=== PATIENT | female | born 1945 | race Caucasian/White ===

== ENCOUNTER 2017-04-25 19:27 | Inpatient (IN) | payer MEDICARE ==
[~2017-04-25] VITALS: Ht 167.6 cm; Wt 68.2 kg
[2017-04-25 19:27] VITALS: BP 170/62
[~2017-04-25 19:27] MED LIST: ACCUNEB SO1.25 MG/1 INH; ASPIR 8181 MG PO; ATORVASTATIN CA40 MG PO; BIOTIN2500 MCG PO; HYDROCHLOROTHIA25 M2 PO; LEVALBUTER1.25 MG/0. INH; LEVAQUIN 500 M500 M2 PO; LEVOXYL75 MCG PO; LISINOPRIL5 MG PO; PREDNISONE 10 M10 M1 PO; SINGULAIR 10 MG10 M1 PO; SYMBICORT160 MCG/4. INH; VITAMIN D3400 UNIT PO
[2017-04-25 19:45] LABS: ABSOLUTE LYMPHOCYTES 2.2 thou/uL (0.8-5.3); ABSOLUTE MONOCYTES 1.1 thou/uL (0.0-1.2); ABSOLUTE NEUTROPHILS 10.8 thou/uL (1.6-8.1); BASOPHILS 0.2 %; EOSINOPHILS 0.1 %; HEMATOCRIT 41.4 % (37.0-47.0); HEMOGLOBIN 13.8 gm/dL (12.0-15.0); LYMPHOCYTES 15.7 %; MCH 31.4 pg (26.0-34.0); MCHC 33.4 g/dL (28.0-37.0); MCV 93.9 fL (80.0-100.0); MONOCYTES 7.6 %; MPV 8.8 fl. (7.2-11.1); NUCLEATED RBCS 0 /100WBC; PLATELET COUNT* 267 thou/uL (150-400); POLYS 76.4 %; RBC 4.41 mil/uL (4.20-5.00); RDW-CV 14.5 % (10.5-14.5); WBC 14.1 thou/uL (4.0-11.0)
[2017-04-25 19:55] LABS: ANION GAP 11 mmol/L (7-16); BUN 22 mg/dL (7-18); CALCIUM 9.4 mg/dL (8.5-10.1); CHLORIDE 89 mmol/L (98-107); CO2 25 mmol/L (21-32); CREATININE 1.1 mg/dL (0.6-1.3); GLUCOSE 160 mg/dL (70-99); POTASSIUM 4.1 mmol/L (3.5-5.1); SODIUM 125 mmol/L (136-145)
[2017-04-25 19:56] LABS: APTT 24.8 Seconds (25.0-31.3); INR 1.1; PROTIME 10.7 Seconds (9.20-11.50)
[2017-04-25 20:05] LABS: ALKALINE PHOSPHATASE 127 U/L (46-116); LIPASE 177 U/L (73-393); MAGNESIUM 1.7 mg/dL (1.8-2.4); NT-PRO BRAIN NAT PEPTIDE 182 pg/mL (<300); SGOT 261 U/L (15-37); SGPT 500 U/L (30-65); TOTAL BILIRUBIN 0.6 mg/dL (<0.1-1.0); TROPONIN-I LEVEL <0.06 ng/mL (<0.06)
[2017-04-25] MEDS ORDERED: PREDNISONE 10 M10 MG PO (20:06)
[2017-04-25 20:31] LABS: BE -1.7 mmol/L (-2 to +3); HCO3 21.8 mmol/L (22.0-26.0); PCO2 33.3 mmHg (35.0-45.0); pH 7.433 (7.340-7.450)
[2017-04-25 20:32] LABS: PO2 249.9 mmHg (75.0-100.0)
[2017-04-25 21:40] VITALS: BP 142/53
[2017-04-25 22:03] VITALS: BP 130/59
[2017-04-26] VITALS (8 sets, daily range): BP systolic 94–136; BP diastolic 27–60
--- NOTE | 2017-04-26 04:42 | NUR ---
END SHIFT: PT RESTED WELL IN UPRIGHT POSITION. REMAINS VERY SOA, TACHYPNEC BREATHS, ON 4L NC. IVF INFUSING WITHOUT DIFFICULTY. ST ON MONITOR. PRESSURES HAVE BEEN SLIGHTLY HYPOTENSIVE. NO PAIN. NO OTHER COMPLAINTS. HARSH NON PRODUCTIVE COUGH NOTED WITH WHEEZING. SCREENED POSITIVE FOR SEPSIS ON ARRIVAL TO FLOOR. ORDERED RECIEVED BY MONYT. SAFETY PRECAUTIONS IN PLACE. CALL LIGHT IN REACH. PERFORMED HOURLY ROUNDING. WILL CONT TO MONITOR.
--- NOTE | 2017-04-26 12:02 | NUR ---
MET WITH PT TO DISCUSS HOME SITUATION/DC PLANNING. PT LIVES WITH SPOUSE. SHE USES NEBULIZER AT HOME. PT IS INDEPENDENT AND ACTIVE. SHE HASN'T HAD HH OR BEEN TO SNF. PLANS TO RETURN HOME AT [place]. SON/ROXANN IS HER DPOA. DENIES NEEDS. WILL FOLLOW
--- NOTE | 2017-04-26 15:38 | EKG ---
[place] [address] ELECTROCARDIOGRAM REPORT Name: DIANA VILLASEÑOR Amisha Room: [address] ADM IN .R.#: [id number] Admission: 04/25/17 Attend Phys: Darryl Olson Discharge: Date of : 43 Report #: [id number] THIS REPORT FOR: //name// [facility] ED Test Date: 2017-04-25 Test Time: 20:11:29 Pat Name: CHERRY VILLASEÑOR Department: Room: [facility] Gender: F Processing Tech: CYNDIE Montenegro : 1945 Requested By: Oscar Lala Order Number: [id number] MD: Wale Mart Measurements Intervals [place] Rate: 128 P: 95 OH: 147 QRS: 55 QRSD: 91 T: 39 QT: 302 QTc: 441 Interpretive Statements Sinus tachycardia Compared to ECG 02/06/2017 22:25:47 Myocardial infarct finding no longer present Electronically Signed On 04-26-2017 15:37:55 SUPERVISOR EXTRUDING DEPARTMENT by Wale Mart [email or web address] <ELECTRONICALLY SIGNED> By: Wale Mart MD, [facility] 04/26/17 1537 10 10 Wale Mart MD, FAC /EPI
--- NOTE | 2017-04-26 20:07 | NUR ---
ASSUMED PT CARE AT 0730, FULL ASSESMENT DONE CHARTED. PT A/O X4, C/O COUGH AND SOA. PT ON 4L O2 NC. SAT IN THE UPPER 90'S. ALL OTHER VSS, ST ON THE MONITOR. PT UP AD YOANA IN ROOM. USES CALL LIGHT APPROPRIALTY. PTS IV INFILTRATED THIS EVENING. ATTEMPTED TO START NEW IV, PT STARTING BREATHING HARD, XANEX GIVEN, PT RELAXED, NIGHT RN PLACED NEW IV AND REPORT LUIS E.
--- NOTE | 2017-04-27 01:56 | NUR ---
RECEIVED REPORT FROM CORTEZ MANLEY, AND ASSUMED CARE OF PATIENT AT THIS TIME. REVIEWED ASSESSMENT AND AGREE WITH CHARTING. PATIENT RESTING COMFORTABLY AT THIS TIME. IVF INFUSING PER ORDERS. CALL LIGHT WITHIN REACH
[2017-04-27 04:02] VITALS: BP 116/41
[2017-04-27 05:05] LABS: ABSOLUTE LYMPHOCYTES 1.1 thou/uL (0.8-5.3); ABSOLUTE MONOCYTES 0.5 thou/uL (0.0-1.2); ABSOLUTE NEUTROPHILS 7.9 thou/uL (1.6-8.1); BASOPHILS 0.1 %; HEMATOCRIT 35.4 % (37.0-47.0); LYMPHOCYTES 11.6 %; MCH 31.5 pg (26.0-34.0); MCHC 33.1 g/dL (28.0-37.0); MCV 95.3 fL (80.0-100.0); MONOCYTES 5.4 %; MPV 8.9 fl. (7.2-11.1); NUCLEATED RBCS 0 /100WBC; POLYS 82.9 %; RBC 3.72 mil/uL (4.20-5.00); RDW-CV 14.7 % (10.5-14.5); WBC 9.5 thou/uL (4.0-11.0)
[2017-04-27 05:17] LABS: HEMOGLOBIN 11.7 gm/dL (12.0-15.0); PLATELET COUNT* 145 thou/uL (150-400)
[2017-04-27 05:40] LABS: CALCIUM 8.3 mg/dL (8.5-10.1); CREATININE 0.8 mg/dL (0.6-1.3); POTASSIUM 3.5 mmol/L (3.5-5.1); TOTAL BILIRUBIN 0.2 mg/dL (<0.1-1.0); TOTAL PROTEIN 6.4 g/dL (6.4-8.2)
--- NOTE | 2017-04-27 06:44 | NUR ---
PATIENT PARTIALLY PROGRESSING TOWARDS GOALS: PATIENT'S O2 INCREASED TO 4L NC DUE TO INCREASE AND ANXIETY AND SHORTNESS OF AIR. O2 SATS MAINTAINED >90%. ANXIETY WAS RELIEVED BY THERAPEUTIC COMMUNICATION AND RELAXATION TECHNIQUES. PATIENT NPO FOR ABDOMINAL US. HOURLY ROUNDING OBSERVED. CALL LIGHT WITHIN REACH
[2017-04-27 07:05] LABS: HEPATITIS B SURFACE AG Negative (Negative)
[2017-04-27 09:00] VITALS: BP 123/50
[2017-04-27 12:00] VITALS: BP 125/58
[2017-04-27 16:00] VITALS: BP 133/47
--- NOTE | 2017-04-27 19:46 | NUR ---
ASSUMED PT CARE AT 0730, FULL ASSESMENT DONE CHARTED. PT A/O X4, DENIES PAIN, GETS SOA WHEN AMBULATING. PT NEEDED NEW IV TODAY FOR CT, SHE BECAME VERY ANXIOUS WHILE NURSE WAS PLACING IT. XANEX GIVEN. RFA IV INFILTRATED IN CT, ANOTHER WAS PLACED IN CT AND ALSO INFILTRATED. PTS LEFT ARM SLIGHTLY SWOLLEN, WRAPED WITH COBAN, THEN ICED THE ARM. PTS VSS, ST ON THE MONITOR. FALL PRECATUIONS IN PLACE. PT USES CALL LIGHT APPROPRIALTY. REPORT GIVEN TO CORTEZ VIRAMONTES
[2017-04-27 20:00] VITALS: BP 120/53
[2017-04-28] VITALS (7 sets, daily range): BP systolic 114–149; BP diastolic 50–65
--- NOTE | 2017-04-28 06:36 | NUR ---
PATIENT PROGRESSING TOWARDS GOALS: PATIENT RECIEVED XANAX X1 FOR ANXIETY WITH RELIEF. PATIENT STATES SHE WANTS TO "TRY TO GO WITHOUT IT." PATIENT REMAINS ON 3L O2 NC WITH SATS >92%. PATIENT WAS TITRATED DOWN FROM 4L AT THE BEGINNING OF THE SHIFT. PATIENT TOLERATING ACTIVITY WELL. PATIENT DENIES PAIN AND DISCOMFORT. HOURLY ROUNDING OBSERVED. CALL LIGHT WITHIN REACH
--- NOTE | 2017-04-28 08:15 | NUR ---
ASSUMED CARE OF PT ASSESSED AND DOCUMENTED. PT ON CARDIAC MONITER TRACING ST 108. VSS WNL. PT IS A&O WITH NO C/O PAIN. PT IS AFEBRILE. PT HAS SWELLING AND REDNESS IN BLUARMS. WM.
--- NOTE | 2017-04-28 17:32 | NUR ---
PT HAS REMAINED ON ROOM AIR. SHE C/O ANXIETY X1 TODAY XANAX 0.5 MG GIVEN AND WAS EFFECTIVE. HOURLY ROUNDING COMPLETE. EDUCATION GIVEN ON DEMAND. PT RESTING IN ROOM WITH AT BEDSIDE.
[2017-04-29 04:00] VITALS: BP 147/64
[2017-04-29 04:45] LABS: HEMATOCRIT 38.7 % (37.0-47.0); HEMOGLOBIN 12.8 gm/dL (12.0-15.0); MCH 31.2 pg (26.0-34.0); MCHC 32.9 g/dL (28.0-37.0); MCV 94.9 fL (80.0-100.0); MPV 9.1 fl. (7.2-11.1); NUCLEATED RBCS 0 /100WBC; PLATELET COUNT* 182 thou/uL (150-400); RBC 4.08 mil/uL (4.20-5.00); RDW-CV 14.6 % (10.5-14.5); WBC 9.6 thou/uL (4.0-11.0)
[2017-04-29 05:09] LABS: ALBUMIN 3.2 g/dL (3.4-5.0); CALCIUM 8.3 mg/dL (8.5-10.1); CREATININE 0.8 mg/dL (0.6-1.3); MAGNESIUM 1.7 mg/dL (1.8-2.4); POTASSIUM 3.2 mmol/L (3.5-5.1); TOTAL BILIRUBIN 0.2 mg/dL (<0.1-1.0); TOTAL PROTEIN 7.1 g/dL (6.4-8.2)
--- NOTE | 2017-04-29 05:36 | NUR ---
PATIENT REPORTS FEELING MORE ANXIOUS THIS SHIFT THAN PREVIOUS SHIFTS. XANAX ADMINISTERED X2 PER EMAR WITH PARTIAL RELIEF. PATIENT SUSPECTS IT IS THE STEROIDS CAUSING HER ANXIETY. REASSURANCE PROVIDED. IVF INFUSING PER ORDERS. PATIENT ON ROOM AIR WITH SATS >90%, WHILE 2L O2 NC ON STANDBY PRN. PATIENT DID HAVE TO USE O2 WHILE AMBULATING TO BATHROOM DUE TO SHORTNESS OF BREATH ON EXERTION. HOURLY ROUNDING OBSERVED. CALL LIGHT WITHIN REACH
[2017-04-29 05:46] LABS: ABSOLUTE LYMPHOCYTES 1.2 thou/uL (0.8-5.3); ABSOLUTE MONOCYTES 0.3 thou/uL (0.0-1.2); ABSOLUTE NEUTROPHILS 8.1 thou/uL (1.6-8.1); PLATELET ESTIMATE ADEQUATE
[2017-04-29 05:48] LABS: ANISOCYTOSIS 1+; POIKILOCYTOSIS 1+
[2017-04-29 08:00] VITALS: BP 134/60
[2017-04-29 11:26] LABS: CALCIUM 8.2 mg/dL (8.5-10.1); CREATININE 0.9 mg/dL (0.6-1.3)
[2017-04-29 11:27] LABS: POTASSIUM 2.9 mmol/L (3.5-5.1)
[2017-04-29 12:05] VITALS: BP 158/54
[2017-04-29 16:04] VITALS: BP 143/49
--- NOTE | 2017-04-29 19:10 | NUR ---
assumed pt care at 0730, full assesment done as charted. pt a/o x4, c/o soa when ambulating but states she feels better. pt hopeful to go home today but wants pt to stay another day. pts vss, sr-st on the monitor. pt up ad efrain in room, fall precatuions in place. call light in reach and used approprialty. will continue to monitor
[2017-04-29 20:00] VITALS: BP 152/60
[2017-04-29 21:03] LABS: MAGNESIUM 1.7 mg/dL (1.8-2.4); POTASSIUM 3.9 mmol/L (3.5-5.1)
[2017-04-29 23:47] VITALS: BP 179/81
[2017-04-30 04:00] VITALS: BP 166/60
[2017-04-30 04:52] LABS: CALCIUM 8.5 mg/dL (8.5-10.1); CREATININE 0.8 mg/dL (0.6-1.3); POTASSIUM 3.6 mmol/L (3.5-5.1)
--- NOTE | 2017-04-30 07:40 | NUR ---
THIS NURSE ASSUMED CARE OF PT 04/29/17 AT 1930, PT ALERT AND ORIENTED X4, PT IN PLEASANT MOOD, VISITS WITH , PT SITS UPRIGHT IN BED THROUGHOUT THE NIGHT, PT HAS 2 EPISODES OF EXTREME ANXIETY AND COMPLAINS THAT SHE CANNOT BREATHE, FAN, COOL CLOTH, AND ANTIANXIETY MEDICATION PROVIDED, PT THEN REPORTS FEELING BETTER, PT UP TO BEDSIDE COMMODE WITH STANDBY ASSIST, DENIES PAIN THROUGHOUT THIS SHIFT, REMAINS ON 2-4L O2 NC AND IV FLUIDS CONTINUE INFUSING, REPORT GIVEN TO LISSETTE TORO
[2017-04-30 09:30] VITALS: BP 166/66
[2017-04-30 11:30] VITALS: BP 192/74
--- NOTE | 2017-04-30 12:30 | NUR ---
CONTINUE TO FOLLOW, MET WITH PT AND DIL. PT ANXIOUS, SITTING UP IN BED WITH O2 ON. ASKING FOR VISTARIL AND CORTEZ DAHL AWARE. PT STILL PLANS TO RETURN HOME AT [place]. WILL FOLLOW
[2017-04-30 16:00] VITALS: BP 130/73
--- NOTE | 2017-04-30 17:30 | NUR ---
ASSUMED PT CARE AT 0700 PT DENIES PAIN OR SOA ON 4L/NC PT IS UP AD YOANA PT IS NOT A FALL RISK PT FAMILY IN ROOM, PT IS ST ON MONITOR PT IS ANXIOUS GAVE VISTRIL INSTEAD OF XANAX PER PY REQUEST DOES NOT WANT TO BECOME ADDICTED IS PT CONCERN. PT HAS IV IN RIGHT HAND, PT IS PLEASANT AND COOPERATIVE WITH ANXIOUS EPISODES, WILL CONTINUE TO MONITOR
[2017-04-30 21:20] VITALS: BP 168/65
[2017-05-01 00:08] VITALS: BP 159/57
[2017-05-01 04:27] VITALS: BP 156/60
[2017-05-01 05:19] LABS: ABSOLUTE LYMPHOCYTES 0.9 thou/uL (0.8-5.3); ABSOLUTE MONOCYTES 0.3 thou/uL (0.0-1.2); ABSOLUTE NEUTROPHILS 8.2 thou/uL (1.6-8.1); BASOPHILS 0.1 %; EOSINOPHILS 0.1 %; HEMATOCRIT 38.9 % (37.0-47.0); HEMOGLOBIN 12.8 gm/dL (12.0-15.0); LYMPHOCYTES 9.2 %; MCH 31.3 pg (26.0-34.0); MCV 94.8 fL (80.0-100.0); MONOCYTES 3.7 %; MPV 9.2 fl. (7.2-11.1); NUCLEATED RBCS 0 /100WBC; PLATELET COUNT* 169 thou/uL (150-400); POLYS 86.9 %; RDW-CV 15.2 % (10.5-14.5); WBC 9.4 thou/uL (4.0-11.0)
[2017-05-01 05:59] LABS: ALBUMIN 3.2 g/dL (3.4-5.0); CALCIUM 8.3 mg/dL (8.5-10.1); CREATININE 0.8 mg/dL (0.6-1.3); MAGNESIUM 1.5 mg/dL (1.8-2.4); TOTAL BILIRUBIN 0.4 mg/dL (<0.1-1.0)
[2017-05-01 06:00] LABS: POTASSIUM 2.9 mmol/L (3.5-5.1)
--- NOTE | 2017-05-01 06:07 | NUR ---
PT SLEPT MOST OF NIGHT. ASSESSMENT DOCUMENTED. MEDS GIVEN PER E-MAR. NO REPORTS OF PAIN OR NAUSEA. PT COUGHING BEGINING OF SHIFT, STATING SHE WAS HAVING A HARD TIME COUGHING STUFF UP. IV PATENT, FLUIDS INFUSING. POTASSIUM AND MAGNESIUM LOW THIS AM, WILL REPLACE PER PROTOCOL. WILL CONTINUE TO MONITOR.
--- NOTE | 2017-05-01 06:27 | CON ---
[facility] [address] [place] [address] CONSULTATION Name: NAYELYWilianCHERRY Room: [address] IN ..#: [id number] Admission: 04/25/17 Attend Phys: Darryl Olson Discharge: Date of : 43 Report #: [id number] THIS REPORT FOR: //name// CC: Ashwini Gaitan DATE OF SERVICE: 04/29/2017 REQUESTING PHYSICIAN: Gagandeep Martinez MD. REASON FOR CONSULTATION: COPD exacerbation. DISCUSSION: The patient is a 71-year-old woman who is well known to me. I followed her in the office. She is a former smoker, quitting greater than 10 years ago. She does have very severe COPD with her last FEV1 of only 31% of predicted. She has not been steroid or O2 dependent. I just saw her in office several weeks ago, at that time was doing fair. She began to have more congestion and she was given prednisone and azithromycin to start if her symptoms worsened. She did start that at home. She notes she has had a lot of upper airway congestion. She presented to the ED here on 04/25/2017. She was having a lot of trouble with her breathing, was unable to get secretions mobilized. She is quite anxious with that as well. She has not had any recent fevers at home. She has been able to get up ____. No chest pain and no hemoptysis. She was admitted and started on IV steroids, bronchodilator therapy, initially was placed on quite a bit of oxygen, was actually weaned to room air yesterday. During the night, felt much more anxious, had some palpitations noted. Did receive some additional Xanax during the night. She was hoping to be discharged today. Dr. Martinez was concerned given her shortness of air, actually was still tight and asked me to see her. She has been followed in our office for quite some time. She has severe COPD as noted. Baseline, she is on nebulizer treatments with the albuterol, which she does roughly 4 times a day, Spiriva daily, Symbicort 60/4.5 two puffs twice a day, more recently had increased the amount of Mucinex that she is on. She has had a flu shot for this season. She quit smoking greater than 10 years ago. She does have a who smokes, so he typically goes outside to smoke. Sometimes he does smoke, however, in the garage. Here in the hospital, she has been on Xopenex 0.63 mg every 6 hours, potassium and magnesium replacement protocols, diltiazem, lorazepam p.r.n., montelukast, Protonix, Lovenox for DVT prophylaxis, methylprednisolone 62.5 mg IV every 8 hours, levofloxacin, lisinopril, vitamin D, MiraLax, docusate, [place] [address] CONSULTATION Name: CHERRY VILLASEÑOR Room: [address] IN [facility]#: [id number] Admission: 04/25/17 Attend Phys: Darryl Olson Discharge: Date of : 43 Report #: [id number] Ramses. PAST MEDICAL HISTORY: Besides the severe COPD, it is also remarkable that she has had some mucous plugging. This was noted on a CT scan done of her chest this fall at an outside institution. She also had a small nodule noted in the right lung field. Given her severe COPD and high risk for any invasive procedures, our plan was to repeat CT imaging studies after the first of the year. Also, has a history of type 2 diabetes mellitus, dyslipidemia, hypothyroidism, ongoing issues with upper airway congestion, sinusitis, TIA. She has had cataract surgery and facelift done in the past. SOCIAL HISTORY: She is . Former smoker as noted. FAMILY HISTORY: Positive for ovarian cancer and heart disease. REVIEW OF SYSTEMS: A 12-point ROS was done. No positives as above. She does become very depressed and anxious when she is on systemic corticosteroids. No recent fevers at home. Secretions have been clear. No difficulty swallowing. No nausea or vomiting. PHYSICAL EXAMINATION: GENERAL APPEARANCE: Pleasant woman who looks stated age. Does look a little anxious. However, she is alert, conversant, and able to speak in full sentences. HEENT: Head is normocephalic. Sclerae are nonicteric. No tenderness with percussion over sinuses. Oral mucosa is moist. No thrush is seen. NECK: Negative for adenopathy. HEART: Regular, though mildly tachycardic. It is in the low 90s. No S3 is heard. Tones are distant. LUNGS: Show breath sounds to be markedly diminished. She has a prolonged expiratory phase. Does have expiratory wheezes heard. Excursion is equal. No subcutaneous emphysema. ABDOMEN: Soft. EXTREMITIES: She has no clubbing. Lower extremities are negative for edema. SKIN: Warm and dry. NEUROLOGIC: She is alert and oriented x3. LABORATORY AND X-RAY FINDINGS: Arterial blood gases done on admission, she had a pH 7.43, pCO2 of 33, pO2 of 250, bicarbonate of 22 with saturation 98%. That was on a nonrebreather mask. On her chemistry this morning, her potassium is 2.9 (now being replaced). Her sodium on admission was 125, up to 137 today. BUN 18, creatinine of 0.9. Glucose has been a little elevated. Transaminases elevated with her ALT of 203, AST of 58. Lipase was normal. Bilirubin was normal. Lactic acid normal. White blood cell count 9600 down from 14,100, hemoglobin 12.8, hematocrit of 38.7, platelets 182,000. Blood cultures sent [place] [address] CONSULTATION Name: CHERRY VILLASEÑOR Room: [address] IN [facility].#: [id number] Admission: 04/25/17 Attend Phys: Darryl Olson Discharge: Date of : 43 Report #: [id number] Imaging studies were reviewed. A CT angiogram done of her chest 2 days ago was negative for pulmonary emboli. She does have some plugging noted in the left lower lobe bronchus. No definite nodules or masses are appreciated. I do not have her prior CT scan available for comparison purposes, though I recall findings on that other scan were much more prominent than what they are seen previously. She does have renal cysts noted including a very large one on the left side. This was confirmed with a CT scan done of her abdomen and pelvis, which was measuring 12.6 x 15.5 x 16.4. IMPRESSION: 1. Chronic obstructive pulmonary disease exacerbation. Remains tight and bronchospastic, though reportedly is improved from admission. Baseline, she does have very severe disease with FEV1 of only 31% of predicted. Remarkably, she has not been steroid or O2 dependent in the past. She has had issues with mucus plugging, however, poor candidate for invasive procedures. 2. Anxiety, this has been an intermittent ongoing issue for her. Can be exacerbated by bronchodilator therapy. Unfortunately, Xopenex is not covered with her insurance, so she has been using albuterol at home. 3. Renal cyst. Should not be contributing to her acute issues. RECOMMENDATIONS: 1. I agree with Dr. Martinez, she is not ready for discharge today. 2. We will add Brovana to her nebulizer treatments to take the place of Symbicort while she is here. 3. Mucinex maximum strength. 4. Also provide a flutter device. 5. Reevaluate tomorrow. Check O2 needs. 6. Hopefully, she can be discharged within the next 1-2 days. She is quite anxious to get home for the holidays. However, I reiterated to her I do want to have her in position that she can be managed at home, and not require prompt readmission. 7. She is concerned about taking anxiolytics. 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 Vistaril may be helpful without the addiction risk. <ELECTRONICALLY SIGNED> By: Lorene Woodard MD 05/01/17 0627 1203 [id number] Woodard MD /nt
[2017-05-01 09:30] VITALS: BP 150/58
[2017-05-01 11:30] VITALS: BP 146/51
[2017-05-01 16:00] VITALS: BP 107/56
[2017-05-01 19:31] LABS: MAGNESIUM 1.8 mg/dL (1.8-2.4); POTASSIUM 3.8 mmol/L (3.5-5.1)
[2017-05-01 20:10] VITALS: BP 171/61
[2017-05-02 00:02] VITALS: BP 170/54
[2017-05-02 04:00] VITALS: BP 118/47
--- NOTE | 2017-05-02 05:07 | NUR ---
ASSUMED CARE AROUND 1930. PT A/OX4 AND VERY PLEASANT, ANXIOUS DURING NIGHT AND AWAKE MOST THIS SHIFT. PT REQUESTED VISTARIL AND XANAX X1 THIS SHIFT FOR ANXIETY/SLEEP. BP ELEVATED PRIOR TO XANAX BUT SINCE HAS COME DOWN. PT DENIES ANY PAIN. TELE MONITOR TRACING SR/1D. ON 3L NC. IVF INFUSING ORDERED. UP AD YOANA TO BSC. DENIES WEAKNESS OR DIZZINESS. SEE CHARTING. CALL LIGHT IN REACH, WILL CONTINUE WITH PLAN OF CARE.
[2017-05-02 09:30] VITALS: BP 174/54
[2017-05-02 12:01] VITALS: BP 163/49
--- NOTE | 2017-05-02 15:29 | NUR ---
ASSUMED PT CARE AT 0700 PT IS ALERT AND ORIENTED X 4 PT DENIES PAIN PT IS NOT A FALL RISK, PT HAVING ANXIETY GAVE XANAX PT STATES XANAX HELPS EASE HER ANXIETY AND BREATHING, PT IS SR ON THE MONITOR, PT IS UP AD YOANA, PT IS PLEASANT AND COOPERATICE PT IS IN THE ROOM, WILL CONTINUE TO MONITOR
[2017-05-02 16:07] VITALS: BP 149/50
[2017-05-02 20:00] VITALS: BP 150/47
--- NOTE | 2017-05-02 20:00 | NUR ---
RECEIVED REPORT AND ASSUMED CARE OF PT, ASSESSMENT COMPLETED. SITTING UP IN CHAIR VISITING WITH . HAS BEEN WALKING AROUND ROOM WITH O2 ON AT 3L/NC. TAKING IT SLOW, SOB WITH ACTIVITY BUT WANTS TO BUILD STRENGTH TO GO HOME TOMORROW. TELEMETRY ON SHOWING SR. WILL CONT TO MONITOR AND ASSIST NEEDED.
[2017-05-03 00:06] VITALS: BP 139/52
[2017-05-03 03:41] VITALS: BP 123/42
--- NOTE | 2017-05-03 06:59 | NUR ---
AWAKE FREQ TONIGHT, XANAX GIVEN AND ABLE TO REST AFTER THIS. ASSESSMENT UNCHANGED. TELEMETRY CONT TO SHOW SR. HOURLY ROUNDING OBSERVED. ADVANCING TOWARDS GOALS.
[2017-05-03 08:00] VITALS: BP 145/53
[2017-05-03 12:20] VITALS: BP 124/46
[2017-05-03 17:40] VITALS: BP 128/53
--- NOTE | 2017-05-03 18:38 | NUR ---
ASSUMED CARE OF PT AT 0715. BEDSIDE REPORT RECIEVED FROM FOOD AND NUTRITION PROFESSOR NURSE. PT CONTINUES TO BE A&O X4, CALM AND COOPERATIVE. PT HAS BEEN TRACING SR ON THE MONIITOR TODAY. PT HAS HAD NO C/O PAIN THAT REQUIRED PHARMACOLOGICAL INTERVENTION. PT HAS HAD FAMILY IN AND OUT OF HER ROOM FOR MOST OF THE DAY. SHE HAS BEEN UP WITH 1 ASSIST TO THE THE BEDSIDE COMMODE TODAY AND HAS HAD ADEQUATE INTAKE AND OUTPUT. RESTING ROOM AIR OXYGEN SATURATIONS COMPLETED BY RESP THERAPY TODAY. PT STATES THAT SHE IS 'FEELING BETTER' TODAY AND HAS A BRIGHT AFFECT. NURSING WILL CONTINUE TO MONITOR.
[2017-05-03 20:00] VITALS: BP 148/56
[2017-05-04] VITALS: BP 153/52
[2017-05-04 04:49] VITALS: BP 125/56
--- NOTE | 2017-05-04 05:33 | NUR ---
ASSUMED CARE AROUND 1930. PT A/OX4 AND CALM, SEEMED TO REST WELL THIS SHIFT. TELE MONITOR TRACING SR/ST WITH HR UP TO 110'S. VSS, AFEBRILE. DENIED PAIN. ON 3L NC, REPORTING FEELING "SOMETHING STUCK IN THE BACK OF HER THROAT" AND COUGHING TO GET IT UP. UP AD YOANA. IVF INFUSING ORDERED. SEE CHARTING. CALL LIGHT IN REACH, WILL CONTINUE WITH PLAN OF CARE.
[2017-05-04 08:23] LABS: HEMATOCRIT 39.6 % (37.0-47.0); HEMOGLOBIN 13.4 gm/dL (12.0-15.0); MCH 31.6 pg (26.0-34.0); MCHC 33.9 g/dL (28.0-37.0); MCV 93.2 fL (80.0-100.0); MPV 8.5 fl. (7.2-11.1); NUCLEATED RBCS 0 /100WBC; PLATELET COUNT* 173 thou/uL (150-400); RBC 4.25 mil/uL (4.20-5.00); RDW-CV 14.6 % (10.5-14.5)
[2017-05-04 08:44] LABS: CREATININE 0.7 mg/dL (0.6-1.3)
[2017-05-04 08:47] LABS: POTASSIUM 2.6 mmol/L (3.5-5.1)
[2017-05-04 09:03] LABS: ABSOLUTE LYMPHOCYTES 1.6 thou/uL (0.8-5.3); ABSOLUTE MONOCYTES 0.6 thou/uL (0.0-1.2); ABSOLUTE NEUTROPHILS 13.8 thou/uL (1.6-8.1); PLATELET ESTIMATE ADEQUATE
[2017-05-04 09:30] VITALS: BP 176/55
--- NOTE | 2017-05-04 10:48 | NUR ---
Nutrition: Pt assessed for LOS. Possible disch home soon. Pt admitted with SOA. Albumin 3.2, K+ 2.6. Wt: 158#. Eating Regular diet. No nutrition concerns at this time.
[2017-05-04 11:30] VITALS: BP 156/58
--- NOTE | 2017-05-04 14:15 | NUR ---
CONTINUE TO FOLLOW, MET WITH PT AND SPOUSE/ROXANN. PT STATES FEELING IMPROVED TODAY, STILL HAVING DIFFICULTY WITH COUGHING UP MUCOUS. PT STATES SHE PLANS TO RETURN HOME AT [place], HAS GOOD SUPPORT. SHE HAS HAD O2 AT HOME IN THE PAST THRU [facility] AND WOULD WANT TO USE THEM AGAIN IF NEEDS O2. PT HOPES SHE DOESN'T NEED IT. WILL FOLLOW
--- NOTE | 2017-05-04 15:25 | NUR ---
RECIEVED O.T. EVAL ORDER AND CHART REVIEWED. PT. HAS BEEN UP IN ROOM AD YOANA. PT. AND NURSE DENY ANY O.T. NEEDS FOR PT. O.T. SERVICES ARE NOT INDICATED AT THIS TIME.
[2017-05-04 15:30] VITALS: BP 154/53
--- NOTE | 2017-05-04 18:34 | NUR ---
ASSUMED PT CARE AT 0700 PT IS ALERT AND ORIENTED X 4 PT IS NOT A FALL RISK, PT IS UP AD YOANA, PT DENIES PAIN, PT GETS SOA WITH EXCERTION PT IS ON 3L/NC PT WORKED WITH PT/OT TODAY PT POTASSIUM CALLED THIS AM WAS CRITICALLY LOW NOTIFIED DR JAMES NO NEW ORDERS PT ON ELECTROLYTE PROTOCOL GAVE THREE DOSES OF POTASSIUM LAB WILL REDRAW ORDERS IN, PT IS SR ON MONITOR PT IS NOT DISCHARGING TODAY, PT IS PLEASANT AND COOPERATIVE PT STATES SHE HAS DIFFICULTY SWALLOWING POTASSIUM PILLS THIS NURSE CUT IN HALF THE PILLS AND SPREAD OUT ADMINISTERING THEM PER PT REQUEST, FAMILY IN ROOM, WILL CONTINUET TO MONITOR
[2017-05-04 20:00] VITALS: BP 124/61
[2017-05-05] VITALS (7 sets, daily range): BP systolic 116–166; BP diastolic 37–73
--- NOTE | 2017-05-05 04:47 | NUR ---
ASSUMED CARE OF PT AT 1930, NURSING ASSESSMENT COMPLETED AT START OF SHIFT, PT VOICED NO CONCERNS THIS SHIFT, HOURLY ROUNDING COMPLETED, PT CONTINUES ON TELE MONITOR, TRACING SINUS RHYTHM. CALL LIGHT WITHIN REACH. PT UP AD YOANA. NO FALLS THIS SHIFT. CONTINUES TO PROGRESS TOWARDS GOALS.
[2017-05-05 07:12] LABS: ABSOLUTE LYMPHOCYTES 0.8 thou/uL (0.8-5.3); ABSOLUTE MONOCYTES 0.5 thou/uL (0.0-1.2); ABSOLUTE NEUTROPHILS 8.1 thou/uL (1.6-8.1); BASOPHILS 0.2 %; HEMATOCRIT 38.2 % (37.0-47.0); HEMOGLOBIN 12.7 gm/dL (12.0-15.0); LYMPHOCYTES 8.7 %; MCH 31.4 pg (26.0-34.0); MCHC 33.2 g/dL (28.0-37.0); MCV 94.5 fL (80.0-100.0); MONOCYTES 5.7 %; MPV 8.3 fl. (7.2-11.1); NUCLEATED RBCS 0 /100WBC; PLATELET COUNT* 121 thou/uL (150-400); POLYS 85.4 %; RBC 4.04 mil/uL (4.20-5.00); RDW-CV 14.7 % (10.5-14.5); WBC 9.5 thou/uL (4.0-11.0)
[2017-05-05 07:18] LABS: CALCIUM 8.1 mg/dL (8.5-10.1); CREATININE 0.8 mg/dL (0.6-1.3); POTASSIUM 3.6 mmol/L (3.5-5.1)
--- NOTE | 2017-05-05 10:00 | NUR ---
RECEIVED REPORT. ASSUMED CARE OF PT AT 0730. VSS. O2 SAT 93% ON 3L PER NC. PT A&O X4. SCRUB TECH IN PLACE TRACING ST. PT ASYMPTOMATIC. PT REPORTS SOME ANXIETY AND RECEIVED PO XANAX PER PT REQUEST. AM ASSESSMENT ADN VITALS COMPLETED CHARTED. IV PATENT AND INFUSING. PT DENIES PAIN OR DISCOMFORT AT THIS TIME. PT UP AD YOANA TO THE BATHROOM NEEDED. PT EATING AND DRINKING WITHOUT ISSUE. FAMILY AT BEDSIDE. PT INFORMED OF PLAN OF CARE - PT COMMUNICATES UNDERSTANDING. LOW FALL RISK PRECAUTIONS ARE IN PLACE. CALL LIGHT IS WITHIN REACH. WILL CONTINUE TO MONITOR.
--- NOTE | 2017-05-05 13:37 | NUR ---
CONTINUE TO FOLLOW. MET WITH PT AND SPOUSE TO DISCUSS DC PLANS WITH DR JAMES. HE IS RECOMMENDING THEY CONSIDER SNF. AFTER LEFT, PT AND SPOUSE BOTH STATED THEY PREFER SHE GOES HOME. THEY ARE OPEN TO HH. DISCUSSED OPTIONS AND A HH THAT HAS RT/SPECTRUM. PT AMBULATED WITH THERAPY AND FEELS SHE DID WELL, HOPES TO BE ABLE TO RETURN HOME. SHE WANTS TO TALK WITH THE PULMONARY DR. WILL FOLLOW
--- NOTE | 2017-05-05 15:53 | 2DMMODE ---
[place] [address] 2 D/M-MODE ECHOCARDIOGRAM Name: ERIKADAVIDCHERRY Room: [address] IN [facility]#: [id number] Admission: 04/25/17 Attend Phys: Darron Gaitan Discharge: Date of : 43 Date of Service: 05/05/17 1553 Report #: [id number] THIS REPORT FOR: //name// APPROVED REPORT Study performed: 05/05/2017 14:37:31 EXAM: Comprehensive 2D, Doppler, and color-flow Echocardiogram Patient Location: In-Patient Room #: [facility] Status: routine BSA: 1.80 HR: 89 bpm BP: 149/73 mmHg Rhythm: NSR Other Information Study Quality: Fair Indications Dyspnea 2D Dimensions IVSd: 9.55 (7-11mm) LVOT Diam: 19.42 (18-24mm) LVDd: 35.95 mm PWd: 8.96 (7-11mm) Ascending Ao: 25.98 (22-36mm) LVDs: 18.75 (25-40mm) Aortic Root: 26.92 mm Volumes Left Atrial Volume (Systole) LA ESV Index: 13.10 mL/m2 Aortic Valve AoV Peak Osvaldo.: 1.53 m/s AO Peak Gr.: 9.41 mmHg LVOT Max P.92 mmHg AO Mean Gr.: 5.18 mmHg LVOT Mean P.44 mmHg LVOT Max V: 1.22 m/s AO V2 VTI: 30.56 cm LVOT Mean V: 0.87 m/s PAL (VTI): 2.68 cm2 LVOT V1 VTI: 27.64 cm Mitral Valve E/A Ratio: 0.70 MV Decel. Time: 265.21 ms MV E Max Osvaldo.: 0.80 m/[place] [address] 2 D/M-MODE ECHOCARDIOGRAM Name: CHERRY VILLASEÑOR Room: [address] IN [facility]#: [id number] Admission: 04/25/17 Attend Phys: Darron Gaitan Discharge: Date of : 43 Date of Service: 05/05/17 1553 Report #: [id number] MV PHT: 76.91 ms MVA (PHT): 2.86 cm2 TDI E/Lateral E': 8.89 E/Medial E': 8.89 Medial E' Osvaldo.: 0.09 m/s Lateral E' Osvaldo.: 0.09 m/s Pulmonary Valve PV Peak Osvaldo.: 1.22 m/s PV Peak Gr.: 5.92 mmHg Tricuspid Valve TR Peak Gr.: 32.72 mmHg RVSP: 37.00 mmHg Left Ventricle The left ventricle is normal size. There is normal LV segmental wall motion. There is normal left ventricular wall thickness. Left ventricular systolic function is normal. The left ventricular ejection fraction is within the normal range. LVEF is 60-65%. Grade I - abnormal relaxation pattern. Right Ventricle The right ventricle is normal size. The right ventricular systolic function is normal. Atria The left atrium size is normal. The right atrium size is normal. Aortic Valve The aortic valve is normal in structure. No aortic regurgitation is present. There is no aortic valvular stenosis. Mitral Valve The mitral valve is normal in structure. Trace mitral regurgitation. No evidence of mitral valve stenosis. Tricuspid Valve The tricuspid valve is normal in structure. Trace tricuspid regurgitation. The RVSP is 35-40 mmHg. Pulmonic Valve The pulmonary valve is normal in structure. Trace pulmonic regurgitation[place] [address] 2 D/M-MODE ECHOCARDIOGRAM Name: CHERRY VILLASEÑOR Room: [address] IN [facility]#: [id number] Admission: 04/25/17 Attend Phys: Darron Gaitan Discharge: Date of : 43 Date of Service: 05/05/17 1553 Report #: [id number] The aortic root is normal in size. IVC is normal in size and collapses with >50% inspiration Pericardium There is no pericardial effusion. <Conclusion> Left ventricular systolic function is normal. The left ventricular ejection fraction is within the normal range. <ELECTRONICALLY SIGNED> By: Jasson Gaines MD, FACC 05/05/17 1553 1553 1553 Jasson Gaines MD, FACC /INF
--- NOTE | 2017-05-05 19:22 | NUR ---
VSS. O2 SAT REAMINS >90% ON 3L PER NC. ORNAMENTER IN PLACE TRACING SR. PT REMAINS A&O X4. IV PATENT AND INFUSING MAGNESIUM, MAG LOW AT 1.4. PT CONTINUES TO DENY PAIN OR DISCOMFORT THROUGHOUT THE SHIFT. PT EATING AND DRINKING WITHOUT ISSUE AND GOING TO BATHROOM BY SELF WITHOUT PROBELMS. AT BEDSIDE. PT SLOWLY PREGRESSING TOWARDS GOALS. PT WORKED WITH PHYSICAL THERAPY TODAY. PT COMPLETED ECHO AND U/S OF LOWER EXTREMETIES. LOW FALL RISK PRECAUTIONS IN PLACE. CALL LIGHT IS WITHIN REACH. HOURLY ROUNDING PERFORMED.
[2017-05-06] VITALS (7 sets, daily range): BP systolic 125–154; BP diastolic 51–63
--- NOTE | 2017-05-06 05:27 | NUR ---
ASSUMED CARE OF PT AT 1930, NURSING ASSESSMENT COMPLETED AT START OF SHIFT, HOURLY ROUNDING COMPLETED, PT ON TELE MONITOR, TRACING SINUS RHYTHM. PROGRESSING TOWARDS GOALS, CALL LIGHT WITHIN REACH. NO CONCERNS VOICED THIS SHIFT.
[2017-05-06 08:25] LABS: HEMATOCRIT 39.9 % (37.0-47.0); MCH 30.8 pg (26.0-34.0); MCHC 32.5 g/dL (28.0-37.0); MCV 94.8 fL (80.0-100.0); MPV 8.4 fl. (7.2-11.1); NUCLEATED RBCS 0 /100WBC; PLATELET COUNT* 119 thou/uL (150-400); RBC 4.21 mil/uL (4.20-5.00); RDW-CV 14.7 % (10.5-14.5); WBC 16.4 thou/uL (4.0-11.0)
--- NOTE | 2017-05-06 08:30 | NUR ---
RECEIVED REPORT. ASSUMED CARE OF PT AT 0730. PT A&O X4. VSS. O2 SAT 94% ON 3L PER NC. NUCLEAR MEDICAL TECHNOLOGIST IN PLACE TRACING SR TO ST. PT ASYMPTOMATIC. AM ASSESSMENT AND VITALS COMPLETED CHARTED. IV SALINE LOCKED. PT DENIES PAIN OR DISCOMFORT AT THIS TIME. PT SOB WITH EXERTION AND SAYS SHE IS TRYING TO COUGH UP SOME MUCUS. PT EATING AND DRINKING WIHTOUT ISSUE. PT ABLE TO BE UP INDEPENDETLY TO THE COMMODE. AT BEDSIDE. PT INFORMED OF PLAN OF CARE. PT COMMUNICATES UNDERSTANDING. PT WAITING TO SEE DR WARE. LOW FALL RISK PRECAUTIONS IN PLACE. CALL LIGHT IS WITHIN REACH. WILL CONTINUE TO MONITOR.
[2017-05-06 08:32] LABS: CALCIUM 8.5 mg/dL (8.5-10.1); CREATININE 0.8 mg/dL (0.6-1.3); MAGNESIUM 2.1 mg/dL (1.8-2.4)
[2017-05-06 08:42] LABS: ABSOLUTE LYMPHOCYTES 0.8 thou/uL (0.8-5.3); ABSOLUTE NEUTROPHILS 14.6 thou/uL (1.6-8.1)
[2017-05-06 08:43] LABS: CLUMPED PLTS OCCASIONAL; PLATELET ESTIMATE ADEQUATE; TARGET CELLS 1+
[2017-05-06 08:44] LABS: HYPOCHROMASIA 1+; OVALOCYTES Occasional
--- NOTE | 2017-05-06 13:58 | NUR ---
CONTINUE TO FOLLOW, PT SLEEPING. NO DC ORDERS TODAY. PT WILL NEED WALKER AT DC. SPOKE WITH [facility] YESTERDAY, OK'D TO DISPENSE WALKER AT [place]. ORDER FAXED TO [facility] TODAY AND COPY ON CHART. WILL NEED TO CONTACT THERAPY [place] TO DISPENSE. HAD ALSO DISCUSSED PT USING [facility] AT [place]. WILL FOLLOW
[2017-05-06 16:37] LABS: URINE BILIRUBIN NEGATIVE (Negative); URINE BLOOD 1+ (Negative); URINE CLARITY CLEAR; URINE COLOR YELLOW; URINE GLUCOSE-RANDOM 2+ (Negative); URINE KETONES NEGATIVE (Negative); URINE LEUKOCYTES-REFLEX NEGATIVE (Negative); URINE NITRITE-REFLEX NEGATIVE (Negative); URINE PROTEIN NEGATIVE (Negative); URINE UROBILINOGEN 0.2 E.U./dl (0.2-1.0)
[2017-05-06 16:51] LABS: BACTERIA-REFLEX None Seen /HPF (None Seen); CASTS None Seen /LPF (None Seen); SQUAMOUS 0-3 Few /LPF (0-3); URINE RBC 0-2 Rare /HPF (0-2); URINE WBC-REFLEX None Seen /HPF (0-5)
--- NOTE | 2017-05-06 19:48 | NUR ---
VSS. O2 SAT REMAINS >90% ON 3L PER NC. PAGINATOR IN PLACE WITH NO CHANGES THIS SHIFT. IV SALINE LOCKED. PT HAS CONTINUED TO DENY PAIN OR DISCOMFORT THIS SHIFT. PT EATING AND DRINKING WIHTOUT ISSUE. PT UP TO THE BEDSIDE COMMODE INDEPENDENTLY. AT BEDSIDE. PT PROGRESSING TOWARDS GOALS - MAY DC TOMORROW PER DR WARE. LOW FALL RISK PRECAUTIONS IN PLACE. CALL LIGHT IS WITHIN REACH. HOURLY ROUNDING PERFORMED.
[2017-05-07 03:51] VITALS: BP 113/37
--- NOTE | 2017-05-07 04:39 | NUR ---
ASSUMED CARE OF PT AT 1930, NURSING ASSESSMENT COMPLETED THIS SHIFT, PT VOICED NO CONCERNS, CONTINUES ON TELE MONITOR, TRACING SINUS RHYTHM. HOURLY ROUNDING COMPLETED, CALL LIGHT WITHIN REACH. SLOWLY PROGRESSING TOWARDS GOALS. STATES SHE IS READY TO GO HOME.
[2017-05-07 04:43] LABS: ABSOLUTE LYMPHOCYTES 0.9 thou/uL (0.8-5.3); ABSOLUTE MONOCYTES 0.5 thou/uL (0.0-1.2); ABSOLUTE NEUTROPHILS 8.7 thou/uL (1.6-8.1); BASOPHILS 0.1 %; HEMATOCRIT 36.3 % (37.0-47.0); HEMOGLOBIN 12.2 gm/dL (12.0-15.0); LYMPHOCYTES 9.2 %; MCH 31.8 pg (26.0-34.0); MCHC 33.6 g/dL (28.0-37.0); MCV 94.4 fL (80.0-100.0); MONOCYTES 5.1 %; MPV 8.3 fl. (7.2-11.1); NUCLEATED RBCS 0 /100WBC; PLATELET COUNT* 94 thou/uL (150-400); POLYS 85.6 %; RBC 3.84 mil/uL (4.20-5.00); RDW-CV 14.6 % (10.5-14.5); WBC 10.2 thou/uL (4.0-11.0)
[2017-05-07 04:58] LABS: CALCIUM 8.5 mg/dL (8.5-10.1); CREATININE 0.9 mg/dL (0.6-1.3); POTASSIUM 3.8 mmol/L (3.5-5.1); TOTAL BILIRUBIN 0.4 mg/dL (<0.1-1.0); TOTAL PROTEIN 6.3 g/dL (6.4-8.2)
[2017-05-07 08:00] VITALS: BP 148/47
--- NOTE | 2017-05-07 10:05 | NUR ---
ASSUMED CARE OF PT AT 0730. PT RESTING IN BED RECEIVING BREATHING TREATMENT. AT BEDSIDE. PT A&0X4. DENIES ANY PAIN OR SHORTNESS OF BREATH AT THIS TIME. PT STATES SHE FEELS AWESOME THIS MORNING. PT TRACING SR ON THE REVENUE SETTLEMENTS ADMINISTRATOR. ON 3L NC SAT 96%. WHEEZES NOTED. PT STATES SHE CAN NOT REMEMBER WHEN HER LAST BOWEL MOVEMENT WAS. PT REFUSES TO TAKE MIRALAX THIS AM STATING SHE FEELS ONE COMING ON. PT UP AD YOANA IN ROOM. PT GOAL FOR TODAY IS TO DISCHARGE HOME WITH HH AND OXYGEN. AM ASSESSMENT CHARTED. MEDICATIONS PER JUL. PT REPOSITIONS SELF IN BED WITH REMINDERS. HOURLY ROUNDING OBSERVED. BED IN LOW POSITION. CALL LIGHT WITHIN REACH. WILL CONTINUE PLAN OF CARE.
[2017-05-07 12:00] VITALS: BP 131/54
[2017-05-07 12:07] VITALS: BP 131/54
[2017-05-07] MEDS ORDERED: PREDNISONE 20 M20 MG PO (12:18)
[2017-05-07] MEDS ORDERED: NYSTATIN100000 UNI SW&SWALLOW (12:18)
[2017-05-07] MEDS ORDERED: LEVAQUIN 500 M500 M1 PO (12:18)
--- NOTE | 2017-05-07 12:27 | NUR ---
ORDERS RECEIVED FOR DC TO HOME WITH HH. ORDER FOR WALKER CALLED TO THERAPY TO DISPENSE. CALLED AND FAXED ORDERS TO [facility] PER PT PREFERENCE. PT IS GETTING EVAL'D FOR O2 NEEDS, WILL ARRANGE WITH [facility] ONCE HAVE SATS. PT EXCITED TO GO HOME. STATES SHE'S 'READY.'
[2017-05-07] MEDS ORDERED: MUCINEX600 MG PO (12:49)
[2017-05-07] MEDS ORDERED: CARDIZEM60 MG PO (13:00)
[2017-05-07] MEDS ORDERED: CARDIZEM CD240 MG PO (13:05)
[2017-05-07] MEDS ORDERED: XANAX 0.25 MG0.25 MG PO (13:23)
--- NOTE | 2017-05-07 14:47 | NUR ---
DISCHARGE ORDERS RECEIVED. DISCHARGE INSTRUCTIONS, CARE NOTES, SCRIPTS AND FOLLOW UP APPTS GIVEN TO PT. PT COMMUNICATES UNDERSTANDING OF DISCHARGE TEACHING. IV AND STAGE TECHNICIAN REMOVED. PT DISCHARGED WITH ALL BELONGINGS, PAPERWORK, OXYGEN AND WALKER VIA WHEELCHAIR WITH NURSING STAFF TO SPOUSE OWN PERSONAL VEHICLE.
== END 2017-05-07 14:49 | disposition home health service (06) | DRG 177 ==
LOC: M.ERS 19:27 → M.2W 20:29 → M.TBA-ER 20:29 → M.2W 21:00
PROVIDERS: Family Medicine; Internal Medicine; Internal Medicine Critical Care Medicine; Internal Medicine Pulmonary Disease; ADMIT Internal Medicine
DX: J15.6 Pneumonia due to other Gram-negative bacteria (principal); J96.01 Acute respiratory failure with hypoxia; R65.11 Systemic inflammatory response syndrome (SIRS) of non-infectious origin with acute organ dysfunction; J44.1 Chronic obstructive pulmonary disease with (acute) exacerbation; J44.0 Chronic obstructive pulmonary disease with (acute) lower respiratory infection; E87.1 Hypo-osmolality and hyponatremia; E87.2 Acidosis; E11.9 Type 2 diabetes mellitus without complications; T50.2X5A Adverse effect of carbonic-anhydrase inhibitors, benzothiadiazides and other diuretics, initial encounter; E78.5 Hyperlipidemia, unspecified; E03.9 Hypothyroidism, unspecified; F41.9 Anxiety disorder, unspecified; N28.1 Cyst of kidney, acquired; E86.0 Dehydration; R00.0 Tachycardia, unspecified; E87.70 Fluid overload, unspecified; Z99.81 Dependence on supplemental oxygen; Z86.73 Personal history of transient ischemic attack (TIA), and cerebral infarction without residual deficits; Z98.49 Cataract extraction status, unspecified eye; Z87.891 Personal history of nicotine dependence; Z79.82 Long term (current) use of aspirin; Z79.899 Other long term (current) drug therapy

== ENCOUNTER → 2019-11-09 | Outpatient (CLI) | payer MEDICARE ==
[~2019-11-09] MED LIST changes: +CARDIZEM CD240 MG PO; +CARDIZEM60 MG PO; +LEVAQUIN 500 M500 M1 PO; +MUCINEX600 MG PO; +NYSTATIN100000 UNI SW&SWALLOW; +PREDNISONE 10 M10 MG PO; +PREDNISONE 20 M20 MG PO; +XANAX 0.25 MG0.25 MG PO
== END ==
LOC: M.LAB 09:22
PROVIDERS: ATTEND Internal Medicine Gastroenterology
DX: Z01.812 Encounter for preprocedural laboratory examination (principal); R11.2 Nausea with vomiting, unspecified; R63.4 Abnormal weight loss; R10.9 Unspecified abdominal pain; K52.9 Noninfective gastroenteritis and colitis, unspecified

== ENCOUNTER → 2019-11-15 | Outpatient (CLI) | payer MEDICARE | LOC: M.LAB 03:28 | PROVIDERS: ATTEND Anesthesiology | DX: E87.6 Hypokalemia (principal) ==

== ENCOUNTER → 2019-11-16 | Outpatient (CLI) | payer MEDICARE | LOC: M.NUC 07:22 | PROVIDERS: ATTEND Internal Medicine Gastroenterology | DX: R11.2 Nausea with vomiting, unspecified (principal); K31.84 Gastroparesis; R10.9 Unspecified abdominal pain ==

== ENCOUNTER 2019-12-14 17:12 | Inpatient (IN) | payer MEDICARE ==
[~2019-12-14] VITALS: Ht 162.6 cm; Wt 68.0 kg
--- NOTE | ~2019-12-14 | CON ---
[address] [address] CONSULTATION Name: CHERRY VILLASEÑOR Amisha Room: [address] IN .R.#: [id number] Admission: 12/14/19 Attend Phys: Darryl Olson Discharge: Date of : 43 Report #: [id number] THIS REPORT FOR: //name// cc: Ashwini Krishna MD, Katrina MD ~ THIS REPORT FOR: //name// CC: Ashwini Gaitan DATE OF SERVICE: 12/15/2019 REQUESTING PHYSICIAN: Darron Gaitan DO REASON FOR CONSULTATION: Hyponatremia. HISTORY OF PRESENT ILLNESS: The patient is a very pleasant 74-year-old female, presents to the hospital on 12/14/2019 with complaints of weakness, not feeling well, nausea, vomiting, and diarrhea. She states that she has the problems for the last several days. The patient had colonoscopy done a month ago. Again, the patient complains of no appetite, poor p.o. intake, nausea, vomiting, and diarrhea for 3-4 days. On admission, her serum sodium was 109, chloride 75, BUN 17, creatinine 0.7. She was given some normal saline and went up to 111, but because it is so low, Dr. Gaitan started her on 3% saline. PAST MEDICAL HISTORY: Significant for severe COPD, history of hypertension. MEDICATIONS: Reviewed. She was on hydrochlorothiazide prior to admission. REVIEW OF SYSTEMS: Positive for the symptoms as I mentioned earlier, otherwise negative. SOCIAL HISTORY: She used to smoke, quit several years ago. No alcohol abuse. PHYSICAL EXAMINATION: GENERAL: Awake, alert, and oriented. VITAL SIGNS: Blood pressure 150/45, heart rate 82, afebrile. HEENT: Pupils are round. NECK: Supple. LUNGS: Clear. CARDIOVASCULAR: Regular rate. ABDOMEN: Soft. LOWER EXTREMITIES: No edema. ASSESSMENT: 1. Hyponatremia. I think it is most likely due to [place] [address] CONSULTATION Name: CHERRY VILLASEÑOR Room: [address] IN [facility]#: [id number] Admission: 12/14/19 Attend Phys: Darryl Olson Discharge: Date of : 43 Report #: [id number] and some volume depletion. 2. Severe chronic obstructive pulmonary disease. PLAN: Plan is to check her urine sodium and urine osmolality. Continue to present at a very low rate and check her sodium today this evening and we have to be very careful not to over correct it, may increase it up to around 120-125 in [address] Gaitan and with her nurse. By: [id number] Laila Angel MD /nt
--- NOTE | ~2019-12-14 | CON ---
[address] [address] CONSULTATION Name: CHERRY VILLASEÑOR Room: [address] IN .R.#: [id number] Admission: 12/14/19 Attend Phys: Darryl Olson Discharge: Date of : 43 Report #: [id number] THIS REPORT FOR: //name// cc: Ashwini Krishna MD, Katrina MD ~ THIS REPORT FOR: //name// CC: Ashwini Gaitan DATE OF SERVICE: 12/17/2019 HISTORY OF PRESENT ILLNESS: This is a 74-year-old female patient who was evaluated by me as a part of code stroke. She is admitted with hyponatremia that is being addressed by Nephrology. Her sodium is coming up and she was improving somewhat, but then she has altered mental status where she will not follow any command. It does look like she was aphasic, but the history is not clear in that regard. She never had any problem with sodium before. REVIEW OF SYSTEMS: Indicate that she has hyponatremia. She still has altered mental status. Her sodium is still low. She does have some history of COPD. She has been on diuretics and there is some spine abnormality in this patient also. The patient also has a history of COPD, hypertension. That was a relevant 14-point review of system. PAST MEDICAL HISTORY: Negative for hyponatremia. FAMILY HISTORY: Unremarkable. SOCIAL HISTORY: She is and the was there. PHYSICAL EXAMINATION: Indicate she is alert. She is responsive. She can follow simple command. She could not tell me what month it is, but she knew what hospital she was in and who the president is. Cranial nerve examination 2-12 looks mostly unremarkable. Strength, sensation, reflexes and tone looks symmetrical. I could not look at the patient's fundus. There is no meningeal sign. Cardiac examination is unremarkable. Blood pressure is 156/46, respirations are 17, pulse is 89, temperature is 98.1. LABORATORY DATA: Her white count is 7.9. Sodium is 115. Her imaging studies were reviewed. MRI was reviewed, does not show any abnormality. CT was also unremarkable. IMPRESSION: Altered mental status. It can be related to her hyponatremia, but it can also be related to minor seizures which can occur because of hyponatremia. It is unlikely the patient had a stroke, her MRI is [place] [address] CONSULTATION Name: CHERRY VILLASEÑOR Amisha Room: [address] IN [facility]#: [id number] Admission: 12/14/19 Attend Phys: Darryl Olson Discharge: Date of : 43 Report #: [id number] TIA cannot be fully excluded. We will do some more workup on it and we will also get an EEG done in this patient. I discussed that with the family and the patient and they are agreeable with this plan. We will see what this shows. A total of 50 minutes of time was spent and at least half of that time was spent counseling, coordinating, talking to other health home care provider and reviewing the imaging studies. By: [id number] [id number] Veliz MD /nt
--- NOTE | ~2019-12-14 | EEG ---
[address] [address] EEG STUDY REPORT Name: CHERRY VILLASEÑOR Amisha Room: [address] IN [facility]#: [id number] Admission: 12/14/19 Attend Phys: Darryl Olson Discharge: Date of : 43 Report #: [id number] THIS REPORT FOR: //name// CC: Ashwini Gaitan DATE OF SERVICE: 12/17/2019 This patient is being evaluated for altered mental status. EEG was done by placing the electrode by standard 10-20 system of electrode placement. Both referential and sequential montages were used for recording. Background activity in this patient's EEG is about 8-9 Hz and 30 microvolts. The patient went to sleep that is associated with bilateral slowing and vertex sharp waves. Photic stimulation is unremarkable. Throughout the record, no active epileptiform activity was noticed. IMPRESSION: This patient's EEG is intermixed with some theta range slowing on both sides. That is a nonspecific finding, which can occur with dementia, encephalopathy, effect of psychotropic medication, etc. Clinical correlation is recommended. By: 1945 [id number] Veliz MD /nt
[2019-12-14] MEDS ORDERED: ALENDRONATE SOD35 MG PO (17:19)
[2019-12-14] MEDS ORDERED: ONDANSETRON HCL4 M2 PO (17:23)
[2019-12-14] MEDS ORDERED: LEVO-T100 MCG PO (17:23)
[2019-12-14] MEDS ORDERED: CRESTOR5 MG PO (17:23)
[2019-12-14] MEDS ORDERED: TRELEGY ELLIPT1 EACH INH (17:24)
[2019-12-14] MEDS ORDERED: MONTELUKAST SODI4 M1 PO (17:24)
[2019-12-14 17:31] LABS: URINE BILIRUBIN NEGATIVE (Negative); URINE BLOOD NEGATIVE (Negative); URINE CLARITY CLEAR; URINE COLOR YELLOW; URINE GLUCOSE-RANDOM NEGATIVE (Negative); URINE KETONES TRACE (Negative); URINE LEUKOCYTES-REFLEX NEGATIVE (Negative); URINE NITRITE-REFLEX NEGATIVE (Negative); URINE PROTEIN 1+ (Negative)
[2019-12-14 17:32] VITALS: BP 191/60
[2019-12-14 17:56] LABS: ABSOLUTE BASOPHILS 0.1 thou/uL (0.0-0.2); ABSOLUTE EOSINOPHILS 0.2 thou/uL (0.0-0.7); ABSOLUTE MONOCYTES 0.5 thou/uL (0.0-1.2); ABSOLUTE NEUTROPHILS 4.3 thou/uL (1.6-8.1); BASOPHILS 0.9 %; EOSINOPHILS 2.8 %; HEMOGLOBIN 12.7 gm/dL (12.0-15.0); LYMPHOCYTES 16.9 %; MCH 30.7 pg (26.0-34.0); MCHC 35.4 g/dL (28.0-37.0); MCV 86.9 fL (80.0-100.0); MONOCYTES 8.2 %; MPV 8.6 fl. (7.2-11.1); NUCLEATED RBCS 0 /100WBC; PLATELET COUNT* 94 thou/uL (150-400); POLYS 71.2 %; RBC 4.14 mil/uL (4.20-5.00); RDW-CV 13.9 % (10.5-14.5)
[2019-12-14 18:05] LABS: APTT 27.3 Seconds (25.0-31.3); CALCIUM 8.6 mg/dL (8.5-10.1); CREATININE 0.9 mg/dL (0.6-1.3); POTASSIUM 3.7 mmol/L (3.5-5.1); PROTIME 10.5 Seconds (9.20-11.50)
[2019-12-14 18:16] LABS: ALBUMIN 4.1 g/dL (3.4-5.0); TOTAL BILIRUBIN 0.6 mg/dL (<0.1-1.0); TOTAL PROTEIN 7.1 g/dL (6.4-8.2)
--- NOTE | 2019-12-14 18:18 | NUR ---
DR. BEDOLLA PLACED IV VIA ULTRASOUND.
[2019-12-14 20:50] VITALS: BP 140/46
[2019-12-15 04:00] VITALS: BP 149/53
--- NOTE | 2019-12-15 05:03 | NUR ---
PATIENT AWAKE OFF AND ON DURING THIS SHIFT, VERY ANXIOUS. PT REFUSED BENEDRYL AND AMBIEN FOR ANXIETY/SLEEP. PT UP TO BATHROOM WITH SLOW STEADY GAIT. PT GIVEN IBUPROFEN FOR BACK PAIN AND SAID IT HELP RELIEVE THE PAIN. PT ON FLUID RESTRICTION AND HAS HAD 1000ML OF WATER DURING THIS SHIFT. PT VITALS AND SATS WNL. FREQUENTY USED ITEMS AND CALL LIGHT WITHIN REACH. SIDERAILS UPX2. WILL CONTINUE TO MONITOR.
[2019-12-15 05:17] LABS: CALCIUM 8.1 mg/dL (8.5-10.1); CREATININE 0.7 mg/dL (0.6-1.3); POTASSIUM 3.3 mmol/L (3.5-5.1)
--- NOTE | 2019-12-15 07:05 | NUR ---
CHange of shift bedside report given patient seen in bed watching tv assumed patient care
[2019-12-15 08:00] VITALS: BP 146/47
--- NOTE | 2019-12-15 09:20 | EKG ---
[place] [address] ELECTROCARDIOGRAM REPORT Name: CHERRY VILLASEÑOR Room: [address] ADM IN .R.#: [id number] Admission: 12/14/19 Attend Phys: Darron Gaitan Discharge: Date of : 43 Date of Service: 12/14/19 1725 Report #: [id number] THIS REPORT FOR: //name// [facility] ED Test Date: 2019-12-14 Test Time: 17:25:35 Pat Name: CHERRY VILLASEÑOR Department: Room: [facility] Gender: F Tax Collection Coordinator: JAYDEN : 1945 Requested By: Oscar Lala Order Number: [id number] MD: Jasson Gaines Measurements Intervals [place] Rate: 91 P: 82 AL: 203 QRS: 66 QRSD: 90 T: 72 QT: 349 QTc: 430 Interpretive Statements Sinus rhythm artifact noted Compared to ECG 04/25/2017 20:11:29 Sinus tachycardia no longer present Electronically Signed On 12-15-2019 9:20:10 CDT by Jasson Gaines [email or web address] <ELECTRONICALLY SIGNED> By: Jasson Gaines MD, [facility] 12/15/19 0920 1725 1725 Jasson Gaines MD, [facility] /EPI
[2019-12-15 12:00] VITALS: BP 158/45
[2019-12-15 16:00] VITALS: BP 145/56
--- NOTE | 2019-12-15 16:01 | NUR ---
CM SPOKE TO THE PT TO DISCUSS HER HOME SITUATION, DISCHARGE PLANNING, AND TO INFORM OF THE ROLE OF CM. PT A&O, NORMALLY INDEPENDENT WITH ADL'S, AND DRIVES. PT RESIDES AT HOME WITH SPOUSE, AND HE AND THEIR ADULT CHILDREN ARE SUPPORTIVE AND INVOLVED IN THE PT'S CARE. PT OWNS 0 DME. PT HAS 0 HX OF HH OR SNF, AND PLANS TO RETURN HOME AT D/C. PT HAD SOME FALLS RECENTLY AND IS OPEN TO HH AT D/C IF NEEDED. CM WILL REMAIN AVAILABLE TO ASSIST AND FOLLOW NEEDED.
[2019-12-15 19:50] VITALS: BP 112/53
[2019-12-15 21:27] LABS: CALCIUM 8.4 mg/dL (8.5-10.1); CREATININE 0.7 mg/dL (0.6-1.3); POTASSIUM 3.7 mmol/L (3.5-5.1)
--- NOTE | 2019-12-15 23:03 | NUR ---
Spoke with [facility] Renal doctor to communicate BMP results per their order. Per Dr Richmond, continue with already in place order. No new orders at this time. [facility] Hospitalist also notified as NA remained critically low @ 111. No new orders from hopsitalist at this time.
[2019-12-16] VITALS: BP 150/66
[2019-12-16 04:59] VITALS: BP 138/51
--- NOTE | 2019-12-16 06:07 | NUR ---
Pt alert and oriented. VSS on RA. Meds given as ordered. Ibuprofen given for pain. Pt has 3% NS going at 25ml/hr. On bag vol says 150ml. I question this as bag has been infusing all through shift. Pt voided 300ml. Will continue to monitor.
[2019-12-16 08:00] VITALS: BP 131/50
[2019-12-16 08:28] LABS: CALCIUM 8.4 mg/dL (8.5-10.1); CREATININE 0.7 mg/dL (0.6-1.3); POTASSIUM 3.5 mmol/L (3.5-5.1)
[2019-12-16 12:10] VITALS: BP 129/35
--- NOTE | 2019-12-16 16:57 | NUR ---
PT NAUSEA HAS RESOLVED. PT STILL REPORTS DIARRHEA. VSS ON RA. SR, 1ST DEGREE BLOCK ON MONITOR. IVSL AT THIS TIME. PT IS ADLIB
[2019-12-16 17:27] VITALS: BP 126/42
[2019-12-17] VITALS: BP 157/48
[2019-12-17 04:00] VITALS: BP 156/46
--- NOTE | 2019-12-17 06:51 | NUR ---
PT ALERT AND ORIENTED. VSS ON RA. MEDS GIVEN ORDERED. SODIUM REMAINS CRITICALLY LOW. DR REED VEST BASTER INFORMED OF RESULTS ORDERED. AT ABOUT 0230, PT CALLED OUT THAT IV WAS BEEPING. NURSING WENT INTO PT'S ROOM TO FIX PUMP. PT SEEMED CONFUSED AT THAT TIME. THINKING THERE WAS ANOTHER "BOX" CONNECTED TO HER IV TUBING. PT REORIENTED TO SITUATION AND REASSURANCE PROVIDED. PT SLEPT OFF AND ON THIS SHIFT. WILL CONTINUE TO MONITOR.
[2019-12-17 09:10] LABS: HEMOGLOBIN 12.6 gm/dL (12.0-15.0); MCH 30.3 pg (26.0-34.0); MCHC 34.9 g/dL (28.0-37.0); MCV 86.6 fL (80.0-100.0); RBC 4.16 mil/uL (4.20-5.00); WBC 7.9 thou/uL (4.0-11.0)
[2019-12-17 09:19] LABS: CALCIUM 8.4 mg/dL (8.5-10.1); CREATININE 0.8 mg/dL (0.6-1.3)
[2019-12-17 09:20] LABS: APTT 24.6 Seconds (25.0-31.3); PROTIME 10.7 Seconds (9.20-11.50)
[2019-12-17 09:24] LABS: TOTAL BILIRUBIN 0.5 mg/dL (<0.1-1.0); TOTAL PROTEIN 7.4 g/dL (6.4-8.2)
--- NOTE | 2019-12-17 09:48 | NUR ---
0834 CODE STROKE CALLED. BS OBTAINED (192). PATIENT UNABLE TO COMPLETE NIH-SEE CHARTING. TRANSPORTED TO CT. VOMITED ON THE WAY BUT MORE AWAKE. MRI QUESTIONAIRE COMPLETED. VOMITED ON THE WAY TO MRI. DR WITT NOTIFIED. ZOFRAN 4 MG GIVEN PO TRANSPORTED TO MRI. BECAME MORE AWAKE THROUGH TESTS AND MORE ABLE TO COMPLETE NIH.
[2019-12-17 12:00] VITALS: BP 163/64
[2019-12-17 16:11] VITALS: BP 163/63
--- NOTE | 2019-12-17 18:48 | NUR ---
PT IS DOING CONSIDERABLY BETTER THAN THIS AM. PT FOUND THIS AM WITH ARMS FLAILING AND UNABLE TO CONTROL MOVEMENTS. PT PULLED IV.SEIZURE PRECAUTIONS PLACED.TEN MINUTES LATER PT HAD ANOTHER EPISODE AND WAS UNABLE TO TELL ME AGE, DATE. UNABLE TO RESIST GRAVITY IN EXTREMITIES. CODE STROKE CALLED.PT BEGAN VOMITING ON WAY TO CT X2. CT NEGATIVE. MRI SHOULD MINOR CHANGES. ONCOLOGY CONSULTED. EEG COMPLETED.PT BEGAN TO SHOW IMPROVEMENTS OVER 4 HOURS. CENTRAL LINE ORDERED,CONSENT ON CHART. TO BEGIN SERIES SODIUM AGAIN POST LINE PLACEMENT. VSS ON RA. SR ON MONITOR. SBA FOR SAFETY
[2019-12-17 20:00] VITALS: BP 117/53; BP 163/47
[2019-12-17 23:34] LABS: URINE BILIRUBIN NEGATIVE (Negative); URINE BLOOD TRACE (Negative); URINE CLARITY CLEAR; URINE COLOR YELLOW; URINE GLUCOSE-RANDOM NEGATIVE (Negative); URINE KETONES 2+ (Negative); URINE LEUKOCYTES NEGATIVE (Negative); URINE NITRITE NEGATIVE (Negative); URINE PROTEIN 1+ (Negative)
[2019-12-18] VITALS (9 sets, daily range): BP systolic 99–153; BP diastolic 34–68
[2019-12-18 06:57] LABS: CALCIUM 6.7 mg/dL (8.5-10.1); CREATININE 0.6 mg/dL (0.6-1.3)
[2019-12-18 07:01] LABS: POTASSIUM 2.5 mmol/L (3.5-5.1)
--- NOTE | 2019-12-18 07:49 | NUR ---
PT A+OX4 OTHER THAN WAS SLIGHTLY DISORIENTED TO TIME DURING THE NIGHT. DR CAME IN LAST NIGHT TO START CENTRAL LINE. PT TOLERATED WELL. ENTRY LEVEL MECHANICAL ENGINEER NOTIFIED PT C/O SOA, USES INHALER @ HOME. RESPIRATORY TREATMENTS STARTED. STARTED IV POTASSIUM THIS AM FOR CRITICAL OF 2.5. REPORT GIVEN.
--- NOTE | 2019-12-18 12:28 | NUR ---
SPOKE WITH NURSE FOR PATIENT. PATIENT HAS POTASSIUM OF 2.[address] WITT HAS ORDERED A LIVER BIOPSY. PHYSICIAN STATES TO HAVE POTASSIUM LEVEL CLOSER TO A VALUE THAT IS WITHIN NORMAL RANGE. CALLED LAB TO ASK THEM TO PLEASE DRAW THE POTASSIUM SO THAT WE CAN HAVE A BASELINE VALUE TO DETERMINE IF PROCEDURE CAN BE DONE TODAY. PATIENT HAS BEEN NPO AND IF WE CANNOT DO THE TEST THEN PATIENT CAN EAT. AWAITING RESULTS.
--- NOTE | 2019-12-18 18:54 | NUR ---
PT A&OX4 VSS. CENTRAL LINE TO R. IJ. PATENT AND DRESSING C/D/I. PT SINUS ON MONITOR. PT REMAINS ON 1500ML FLUID RESTRICTION. PT IS COMPLIANT. INITIALLY PT K+ LOW WHEN CARE WAS ASSUMED. IV REPLACEMENT ORDERED AND LABS IMPROVED. PT UP SBA TO COMMODE, GAIT STEADY. PT ON ROOM AIR. PT NPO FOR BREAKFAST AND LUNCH FOR BIOPSY. CRITICAL Na 116 REPORTED BY LAB AT 1757. RESULTS REPORTED TO PHYSICIAN DIP STAND LOADER AND DR BENTLEY. PER DR BENTLEY, IV NS TO RUN AT 50ML/HOUR, RECHECK Na Q4H REPORTING DECREASE OF 1 POINT OR INCREASE OF 3 POINTS. PT RECEIVED IV CALCIUM FOR ELECTROLYTE REPLACEMENT THIS SHIFT WELL. PT DIET RESUMED FOLLOWING RETURN FROM IR, PT TOLERATED INTAKE NO C/O NAUSEA OR VOMITING. SPOUSE AT BEDSIDE. PT IS RESTING IN BED WITH CALL LIGHT IN REACH. WILL CONTINUE TO MONITOR.
[2019-12-19] VITALS (7 sets, daily range): BP systolic 100–166; BP diastolic 43–83
--- NOTE | 2019-12-19 08:05 | CON ---
[address] [address] CONSULTATION Name: DIANA VILLASEÑORSA Lion Room: [address] IN M.R.#: [id number] Admission: 12/14/19 Attend Phys: Darryl Olson Discharge: Date of : 43 Report #: [id number] THIS REPORT FOR: //name// cc: Ashwini Krishna MD, Katrina MD ~ THIS REPORT FOR: //name// CC: Isaiah Gaitan DO DATE OF SERVICE: 12/17/2019 REASON FOR CONSULTATION: Abnormal CT abdomen and liver. HISTORY OF PRESENT ILLNESS: The patient is a very pleasant 74-year-old female who has had about 3 or 4 months of nausea, vomiting, dyspepsia, but worse last 3-4 days. The patient was found to have hyponatremia, has also lost I think about 20-30 pounds. Has not really had any breathing trouble. May have had some mild back discomfort. No blood in her urine or stool. Reports a colonoscopy and EGD within about the last 2-3 weeks was unrevealing and then had CAT scans, for which we are consulted to try to help. There is a concern that there may be an underlying malignancy. The patient had a CT abdomen and pelvis on 12/13 and this was compared to 2017 with a concern about there maybe hepatic metastatic disease because the liver was reported as nodular with multiple hypodense nodules seen on delayed imaging. The largest is in the inferior right lobe measured 16 mm in size. There is also associated fatty infiltration. There is mild ____ micronodularity. They also mentioned alternative suggestion there might be regenerating nodules related to cirrhosis. There is also concern on the bones as they mentioned there are patchy areas of sclerosis in the vertebral bodies, concerning for osseous metastatic disease. Similarly there are bony changes in the pelvis and bilateral proximal femurs. CT of the chest done this admit, talked about severe central lobular emphysema with clear lungs, severe coronary artery atherosclerosis. Note, there are also some changes in the right apical, do need to keep an eye on. She also has recently had an MRI head that showed some minor nonspecific white matter changes, but nothing that would appear to suggest malignancy. LABORATORY TESTS: Here have a sodium of 115, potassium of 3, creatinine 0.8, AST 46, total bilirubin 0.5, albumin is 4 with a total protein of 7.4. TSH 1.261. Cortisol have been unremarkable if I understand correctly. Coags have been close to normal range. White count 7.9, hemoglobin 12.6, MCV 86.6, platelets 119. Note that in 2017 they were between 169 ____ 267 and prior to [facility] [address] [facility] [place] [address] CONSULTATION Name: CHERRY VILLASEÑOR Amisha Room: [address] IN [facility].#: [id number] Admission: 12/14/19 Attend Phys: Darryl Olson Discharge: Date of : 43 Report #: [id number] discharge about 94, not sure how chronic this is or if it improved and worsen. Differential on white count appears to be normal. UA was fairly unremarkable. MEDICATIONS: At this time in the hospital currently include Zofran p.r.n., cholecalciferol 2000 units daily, levothyroxine 0.1 mg daily, lisinopril 5 mg daily, atorvastatin 10 mg daily, montelukast sodium 10 mg at bedtime, promethazine p.r.n., bisacodyl p.r.n., magnesium hydroxide p.r.n., melatonin p.r.n., Ambien p.r.n., Tylenol p.r.n. I believe she is also receiving normal saline, though at times has received hypertonic saline. We will defer to others. PHYSICAL EXAMINATION: GENERAL: The patient appears her stated age. VITAL SIGNS: Height is 5 feet 4 inches, which is 162.6 cm. Weight is 154 pounds, though in the last several days it had been 138, so this may be in question, yesterday it was 144 kg. Weight today reportedly is 70.2. Note the other weights have been bed weights, but still there is a significant change room attendant the last 3 days. Blood pressure is 156/46, O2 sat 95%, respirations 17, pulse 89, afebrile at 98.1. MOOD: The patient is alert and pleasant. Obviously tired, somewhat distracted in her thinking. She looks obviously ill and somewhat chronically. NEUROLOGIC: Face seems symmetric. Thought and speech pattern normal, but slightly slow. LUNGS: Appear to be clear, though slightly distant. No rhonchi, rales or wheezes. LYMPHATICS: No enlarged lymph nodes in the supraclavicular, cervical, axillary or inguinal region. ABDOMEN: Appears to be without any definite masses, appears to be nontender. EXTREMITIES: Without clubbing or cyanosis. ASSESSMENT AND PLAN: 1. Abnormal CT liver and abnormal CT bone, worrisome for cancer. Discussed with and also Dr. Gaitan. I share the other physicians concern this may represent an undiagnosed malignancy causing a refractory hyponatremia. I think it would be very prudent since we do not have a cause and she has been refractory to proceed with biopsy of both the liver and the bone and an order has been placed. The patient's is aware this may take 3-5 days to get back and we will both look for infection and malignancy, not sure whether we can find something we can treat, but we need to find a cause for her hyponatremia, weight loss and dyspepsia. 2. Hyponatremia. Defer to renal and others. 3. Respiratory failure/emphysema, continues inhalation therapy and montelukast ____. 4. Hyperlipidemia. Continue statin. 5. Hypertension. [place] [address] CONSULTATION Name: DIANA VILLASEÑORSA Lion Room: [address] IN [facility].#: [id number] Admission: 12/14/19 Attend Phys: Darryl Olson Discharge: Date of : 43 Report #: [id number] 6. Hypothyroid. Continue replacement. Our team will follow. The patient's is aware that other members of her team will return tomorrow. <ELECTRONICALLY SIGNED> By: Rajeev Tyler MD 12/19/1905 1121 [id number] Tyler MD /nt
[2019-12-19 09:19] LABS: ALBUMIN 3.5 g/dL (3.4-5.0); CALCIUM 8.3 mg/dL (8.5-10.1); CREATININE 0.7 mg/dL (0.6-1.3); TOTAL BILIRUBIN 0.5 mg/dL (<0.1-1.0); TOTAL PROTEIN 6.5 g/dL (6.4-8.2)
[2019-12-19 09:22] LABS: POTASSIUM 3.6 mmol/L (3.5-5.1)
--- NOTE | 2019-12-19 14:19 | NUR ---
spoke with Dr. Blair regarding the procedure she has ordered for the day. The patient had a liver biopsy done yesterday and the directive was they were going to wait for the results of the liver biopsy and it would be determined by the results received as to whether the patient would have a bone biopsy tomorrow or not. Dr. Blair also stated that we would cancel the biopsy of the bone if necessary. Relayed this information to the floor nurse.
[2019-12-19 23:47] LABS: URINE BILIRUBIN NEGATIVE (Negative); URINE BLOOD NEGATIVE (Negative); URINE CLARITY CLEAR; URINE COLOR YELLOW; URINE GLUCOSE-RANDOM NEGATIVE (Negative); URINE KETONES NEGATIVE (Negative); URINE LEUKOCYTES-REFLEX NEGATIVE (Negative); URINE NITRITE-REFLEX NEGATIVE (Negative); URINE PROTEIN 1+ (Negative); URINE SPECIFIC GRAVITY 1.025 (1.005-1.030)
[2019-12-20] VITALS: BP 138/44
[2019-12-20 04:00] VITALS: BP 140/49
[2019-12-20 04:30] LABS: CALCIUM 8.5 mg/dL (8.5-10.1); CREATININE 0.7 mg/dL (0.6-1.3); POTASSIUM 3.9 mmol/L (3.5-5.1)
--- NOTE | 2019-12-20 05:43 | NUR ---
NO ACUTE CHANGES THROUGHOUT SHIFT. VSS. ALL ROUNDINGS COMPLETED, ALL NEEDS MET, FULL ASSESSMENT COMPLETED CHARTED. PT A+O X4, NA 121 ON AM DRAW.
--- NOTE | 2019-12-20 07:23 | NUR ---
CM CONTINUING TO FOLLOW TO ASSIST WITH DISCHARGE PLANNING NEEDS AND POSSIBLE HH ARRANGEMENT AT D/C. CM WILL REMAIN AVAILABLE TO ASSIST AND FOLLOW NEEDED.
[2019-12-20 07:54] VITALS: BP 139/113
--- NOTE | 2019-12-20 09:57 | NUR ---
ASSUMED CARE OF PT THIS AM AROUND 0715- OFFICE COORDINATOR IN PLACE ORDERED, TRACING SR- UPON ASSESSMENT PT NOTED TO BE SITTING UP IN BED, WATCHING TV- PT A&O X4- CONT OF B/B- UP AD-YOANA IN ROOM, STEADY GAIT NOTED- DIMINISHED LUNG SOUNDS NOTED, REPORTED COUGH- VSS, O2 SAT 96% ON RA- ABD SOFT/ROUND/NON-TENDER, BS X4 QUADS- LAST BM REPORTED X2 DAYS AGO- RIGHT IJ NOTED INTACT AND SL- PT CURRENTLY NPO FOR POSSIBLE BONE BIOPSY- SERIAL NA+ CHECKS IN PLACE ORDERED- PT DENIES ANY C/O PAIN/DISCOMFORT AT THIS TIME- CALL LIGHT AND PERSONAL BELONGINGS WITH IN REACH-HOURLY ROUNDS IN PLACE R/T SAFETY/NEEDS- ALL NEEDS MET AT THIS TIME-WCTM
[2019-12-20 12:00] VITALS: BP 140/45
--- NOTE | 2019-12-20 12:27 | NUR ---
RIGHT IJ TRIPLE LUMEN CENTRAL LINE EVALUATED FOR PATENCY. PROXIMAL AND MEDIAL LUMEN FLUSH FREELY WITH NO BLOOD RETURN. SUSPECT THAT SIDE PORTS ARE OCCLUDED BY VESSEL WALL WITH NEGATIVE PRESSURE OF THE SYRINGE. DISTAL PORT FLUSHES FREELY WITH GOOD BRISK BLOOD RETURN. INSERTION SITE CLEANSED WITH CHLOROPREP AND DRESSED WITH BIOPATCH AND BIO-OCCLUSIVE DRESSING. REPORT GIVEN TO KRISTAL TORO.
[2019-12-20 16:00] VITALS: BP 120/49
[2019-12-20 20:00] VITALS: BP 84/40
[2019-12-21] VITALS: BP 137/44
[2019-12-21 03:55] VITALS: BP 132/45
[2019-12-21 04:12] LABS: ABSOLUTE EOSINOPHILS 0.2 thou/uL (0.0-0.7); ABSOLUTE LYMPHOCYTES 0.8 thou/uL (0.8-5.3); ABSOLUTE MONOCYTES 0.3 thou/uL (0.0-1.2); BASOPHILS 1.2 %; EOSINOPHILS 6.1 %; HEMATOCRIT 26.1 % (37.0-47.0); HEMOGLOBIN 9.1 gm/dL (12.0-15.0); MCH 30.8 pg (26.0-34.0); MCV 88.2 fL (80.0-100.0); MPV 8.7 fl. (7.2-11.1); NUCLEATED RBCS 0 /100WBC; PLATELET COUNT* 91 thou/uL (150-400); POLYS 59.7 %; RBC 2.96 mil/uL (4.20-5.00); RDW-CV 13.9 % (10.5-14.5); WBC 3.4 thou/uL (4.0-11.0)
[2019-12-21 04:25] LABS: CALCIUM 8.5 mg/dL (8.5-10.1); CREATININE 0.7 mg/dL (0.6-1.3); POTASSIUM 3.6 mmol/L (3.5-5.1); TOTAL BILIRUBIN 0.3 mg/dL (<0.1-1.0); TOTAL PROTEIN 5.6 g/dL (6.4-8.2)
--- NOTE | 2019-12-21 05:21 | NUR ---
NO ACUTE CHANGES THROUGHOUT SHIFT. VSS. ALL ROUNDINGS COMPLETED, ALL NEEDS MET, FULL ASSESSMENT COMPLETED CHARTED.
[2019-12-21 07:20] VITALS: BP 155/44
--- NOTE | 2019-12-21 08:01 | NUR ---
ASSUMED CARE OF PT THIS AM AROUND 0715- BARKER OPERATOR IN PLACE ORDERED, TRACING SR/1ST DEGREE- UPON ASSESMENT PT NOTED TO BE RESTING IN BED- PT A&O X4- CONT OF BOWEL AND BLADDER- UP AD-YOANA IN ROOM, STEADY GAIT NOTED- VSS, 02 SAT 94% ON RA-DIMINISHED LUNG SOUNDS NOTED, REPORTED NON-PRODUCTIVE COUGH- ABD SOFT/ROUND/NON-TENDER, BS X4 QUADS- LAST BM REPORTED X2 DATS AGO- RIGHT TRIPLE LUMEN IJ NOTED C/D/I, SL- 1000 F/R IN PLACE INDICATED- NA+ CHECKS IN PLACE INDICATED- PT RATES PAIN 8/ TO BACK THIS AM, PRN TYLENOL GIVEN AT 0756- CALL LIGHT AND PERSONAL BELONGINGS WITH IN REACH- PT MAKES NEEDS KNOWN- ALL NEEDS MET AT THIS TIME-WCTM
[2019-12-21 09:16] VITALS: BP 155/44
[2019-12-21 12:00] VITALS: BP 117/32
--- NOTE | 2019-12-21 18:06 | PATH ---
[address] [address] PATHOLOGY RPT PROCEDURE Name: CHERRY GALLAGHER Room: [address] IN [facility].#: [id number] Admission: 12/14/19 Date of : 43 Discharge: 12/21/19 Report #: [id number] Path Case #: [id number] LCA Accession Number: [id number] . 01 Material submitted: . liver - MASS RIGHT LOBE, LIVER BIOPSY. Modifiers: right lobe . 01 Clinical history: . 1.88 x 1.99 x 1.84 cm mass right lobe . 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 SEE COMMENT. (TC:karine; 12/21/2019) S 12/21/2019 1255 Local . 02 Comment: Multiple tissue cores show abundant sheets and nests of malignant cells typical of small cell carcinoma, involving fairly minimal nondysplastic liver parenchyma. A panel of properly controlled immunohistochemical stains perfomed on A1 shows the neoplastic cells to have the following characteristics supporting the diagnosis: . TTF1: Positive Napsin: Negative P40: Negative CD56: Positive Keratin AE1/AE3: Positive . Reviewed with Dr. Juan Singh, who agrees with the diagnosis. Preliminary findings relayed to Dr. Blair at approximately 10:15 on 12/20/2019. . (TC:karine; 12/21/2019) . 02 Electronically signed: . Darrick Drake MD, Pathologist NPI- [id number] . 01 Gross description: . The specimen is received in formalin, labeled "Cherry Gallagher, right liver mass BX" and consists of multiple delicate needle cores of castro tissue measuring 1.8 x 0.5 x 0.1 cm in aggregate which are entirely submitted in A1. (SDY; 12/19/2019) SYU/SYU 12/19/2019 1703 Local . 02 [place] [address] PATHOLOGY RPT PROCEDURE Name: CHERRY GALLAGHER A Room: [address] IN [facility].#: [id number] Admission: 12/14/19 Date of : 43 Discharge: 12/21/19 Report #: [id number] Path Case #: [id number] Pathologist provided ICD-10: C22.9 . 02 CPT . 343445, L86406, K09919 Specimen Comment: A courtesy copy of this report has been sent to [phone] Specimen Comment: [phone], Specimen Comment: Report sent to ,DR WITT / DR SMALLWOOD Performed at: [address] [facility] [address], [place], [place] [address] MD Carl Ashby MD Phone: [phone] Performed at: [address] [facility] [address] [address], [place], [place] [id number] MD Darrick Drake MD Phone: [phone]
--- NOTE | 2019-12-22 12:52 | IN ---
[facility] [address] [place] [address] INTERIM NOTE Name: CHERRY VILLASEÑOR Amisha Room: [address] IN .R.#: [id number] Admission: 12/14/19 Attend Phys: Darryl Olson Discharge: 12/21/19 Date of : 43 Report #: [id number] THIS REPORT FOR: //name// cc: Ashwini Krishna MD, Katrina MD ~ CC: Ashwini Gaitan DATE OF SERVICE: 12/19/2019 SUBJECTIVE: Feeling better. She does not have complaints of nausea, vomiting or back pain. PHYSICAL EXAMINATION: VITAL SIGNS: Blood pressure 100/50, heart rate is 89, temperature 97.8, respirations 16. HEENT: Does not reveal thrush. ABDOMEN: Soft. There is no supraclavicular lymphadenopathy. MENTAL STATUS: Alert and oriented x 3. SKIN: No rash. LABORATORY DATA: White count 7.9, hemoglobin 12.9, platelets 119. Sodium 118. AST 46. ASSESSMENT AND PLAN: Liver lesions, biopsy done, possibly liver lesions are related to cirrhosis and benign nodules. Pathology is pending. Bone lesions. This appeared to be suspicious as well. The patient is planning to go home tomorrow. Plan to order CT-guided biopsy of bone lesion prior to discharge home. Plan to check CA 27-29. <ELECTRONICALLY SIGNED> By: Jacky Blair MD 12/22/19 1252 0922 0929MD roya Herrera
== END 2019-12-21 14:57 | disposition home or self-care (01) | DRG 643 ==
LOC: M.ERS 17:12 → M.TBA-ER 18:21 → M.2W 18:21
PROVIDERS: Family Medicine; Internal Medicine; Internal Medicine Nephrology; ADMIT Internal Medicine; ATTEND Internal Medicine
DX: E22.2 Syndrome of inappropriate secretion of antidiuretic hormone (principal); G93.41 Metabolic encephalopathy; J96.90 Respiratory failure, unspecified, unspecified whether with hypoxia or hypercapnia; C79.9 Secondary malignant neoplasm of unspecified site; J43.9 Emphysema, unspecified; E78.5 Hyperlipidemia, unspecified; E03.9 Hypothyroidism, unspecified; T50.2X5A Adverse effect of carbonic-anhydrase inhibitors, benzothiadiazides and other diuretics, initial encounter; Z20.828 Contact with and (suspected) exposure to other viral communicable diseases; Z87.891 Personal history of nicotine dependence; Y92.89 Other specified places as the place of occurrence of the external cause; Z79.899 Other long term (current) drug therapy

== ENCOUNTER 2019-12-24 16:56 | Emergency (ER) | payer MEDICARE ==
[~2019-12-24] VITALS: Ht 162.6 cm; Wt 63.3 kg
[~2019-12-24 16:56] MED LIST changes: +ALENDRONATE SOD35 MG PO; +CRESTOR5 MG PO; +LEVO-T100 MCG PO; +MONTELUKAST SODI4 M1 PO; +ONDANSETRON HCL4 M2 PO; +TRELEGY ELLIPT1 EACH INH
[2019-12-24 17:30] LABS: ABSOLUTE BASOPHILS 0.1 thou/uL (0.0-0.2); ABSOLUTE EOSINOPHILS 0.3 thou/uL (0.0-0.7); ABSOLUTE LYMPHOCYTES 1.1 thou/uL (0.8-5.3); ABSOLUTE MONOCYTES 0.5 thou/uL (0.0-1.2); ABSOLUTE NEUTROPHILS 4.8 thou/uL (1.6-8.1); BASOPHILS 0.8 %; EOSINOPHILS 3.8 %; HEMATOCRIT 31.5 % (37.0-47.0); LYMPHOCYTES 16.5 %; MCH 30.8 pg (26.0-34.0); MCHC 34.9 g/dL (28.0-37.0); MCV 88.4 fL (80.0-100.0); MONOCYTES 7.3 %; MPV 8.8 fl. (7.2-11.1); NUCLEATED RBCS 0 /100WBC; PLATELET COUNT* 150 thou/uL (150-400); POLYS 71.6 %; RBC 3.57 mil/uL (4.20-5.00); RDW-CV 14.4 % (10.5-14.5); WBC 6.8 thou/uL (4.0-11.0)
[2019-12-24 17:39] LABS: APTT 21.1 Seconds (25.0-31.3); PROTIME 10.8 Seconds (9.20-11.50)
[2019-12-24 18:01] LABS: CALCIUM 8.6 mg/dL (8.5-10.1); CREATININE 0.5 mg/dL (0.6-1.3); POTASSIUM 4.6 mmol/L (3.5-5.1)
[2019-12-24 18:10] LABS: ALBUMIN 3.6 g/dL (3.4-5.0); TOTAL BILIRUBIN 0.5 mg/dL (<0.1-1.0); TOTAL PROTEIN 7.1 g/dL (6.4-8.2)
[2019-12-24] MEDS ORDERED: SODIUM CHLORIDE1 GM PO (18:18)
[2019-12-24 18:32] VITALS: BP 166/60
--- NOTE | 2019-12-26 14:34 | EKG ---
[place] [address] ELECTROCARDIOGRAM REPORT Name: CHERRY VILLASEÑOR Room: [facility]#: [id number] Admission: 12/24/19 Attend Phys: Discharge: 12/24/19 Date of : 43 Date of Service: 12/24/19 170 Report #: [id number] THIS REPORT FOR: //name// [facility] ED Test Date: 2019-12-24 Test Time: 17:08:20 Pat Name: CHERRY VILLASEÑOR Department: Room: Gender: Manager Grant: MINERVA : 1945 Requested By: Oscar Lala Order Number: [id number] MD: Wale Mart Measurements Intervals [place] Rate: 92 P: 87 CO: 200 QRS: 65 QRSD: 82 T: 70 QT: 352 QTc: 436 Interpretive Statements Sinus rhythm Ventricular premature complex Baseline wander in lead(s) V1 Compared to ECG 12/14/2019 17:25:35 Ventricular premature complex(es) now present Electronically Signed On 12-26-2019 14:34:39 CDT by Wale Mart [email or web address] <ELECTRONICALLY SIGNED> By: Wale Mart MD, [facility] 12/26/19 1434 1708 1708 Wale Mart MD, [facility] /EPI
== END 2019-12-24 18:33 | disposition home or self-care (01) ==
LOC: M.ERS 16:56
PROVIDERS: Family Medicine
DX: E87.1 Hypo-osmolality and hyponatremia (principal); R53.1 Weakness; I10 Essential (primary) hypertension; E03.9 Hypothyroidism, unspecified; J44.9 Chronic obstructive pulmonary disease, unspecified

== ENCOUNTER → 2020-01-02 | Outpatient (CLI) | payer MEDICARE ==
[~2020-01-02] VITALS: Ht 162.6 cm; Wt 60.3 kg
[~2020-01-02] MED LIST changes: +ASA81BEC PO; +MAGNESIUM250 M1 PO; +POTASSIUM20 PO; +SODIUM CHLORIDE1 GM PO
[2020-01-02 08:37] VITALS: BP 183/66
[2020-01-02 08:47] LABS: HEMATOCRIT 34.3 % (37.0-47.0); HEMOGLOBIN 11.6 gm/dL (12.0-15.0); MCH 30.6 pg (26.0-34.0); MCHC 33.8 g/dL (28.0-37.0); MCV 90.3 fL (80.0-100.0); MPV 8.2 fl. (7.2-11.1); RBC 3.8 mil/uL (4.20-5.00); RDW-CV 15.6 % (10.5-14.5)
[2020-01-02 08:48] VITALS: BP 288/66
[2020-01-02 08:59] LABS: CALCIUM 8.9 mg/dL (8.5-10.1); CREATININE 0.7 mg/dL (0.6-1.3)
[2020-01-02 09:02] LABS: APTT 20.5 Seconds (25.0-31.3); INR 1.1; PROTIME 10.9 Seconds (9.20-11.50)
[2020-01-02 09:04] LABS: TOTAL BILIRUBIN 0.4 mg/dL (<0.1-1.0); TOTAL PROTEIN 7.3 g/dL (6.4-8.2)
[2020-01-02 10:05] VITALS: BP 204/68
== END ==
LOC: M.INT 08:15
PROVIDERS: Radiology Diagnostic Radiology; ATTEND Internal Medicine Hematology & Oncology
DX: C34.90 Malignant neoplasm of unspecified part of unspecified bronchus or lung (principal); I10 Essential (primary) hypertension; E03.9 Hypothyroidism, unspecified; J44.9 Chronic obstructive pulmonary disease, unspecified; Z79.899 Other long term (current) drug therapy; Z79.82 Long term (current) use of aspirin; Z98.890 Other specified postprocedural states

== ENCOUNTER 2020-01-21 06:50 | Inpatient (IN) | payer MEDICARE ==
[~2020-01-21] VITALS: Ht 162.6 cm; Wt 58.9 kg
[~2020-01-21 06:50] MED LIST changes: -ASA81BEC PO; -MAGNESIUM250 M1 PO; -POTASSIUM20 PO
[2020-01-21 06:51] VITALS: BP 191/75
[2020-01-21 07:58] LABS: HEMATOCRIT 32.2 % (37.0-47.0); HEMOGLOBIN 10.8 gm/dL (12.0-15.0); MCH 31.5 pg (26.0-34.0); MCHC 33.5 g/dL (28.0-37.0); MCV 93.8 fL (80.0-100.0); MPV 7.8 fl. (7.2-11.1); NUCLEATED RBCS 0 /100WBC; PLATELET COUNT* 79 thou/uL (150-400); RBC 3.43 mil/uL (4.20-5.00); RDW-CV 17.9 % (10.5-14.5); WBC 4.3 thou/uL (4.0-11.0)
[2020-01-21 08:08] LABS: CALCIUM 8.3 mg/dL (8.5-10.1); CREATININE 0.9 mg/dL (0.6-1.3)
[2020-01-21 08:12] LABS: ALBUMIN 3.6 g/dL (3.4-5.0); POTASSIUM 2.4 mmol/L (3.5-5.1); TOTAL BILIRUBIN 0.3 mg/dL (<0.1-1.0); TOTAL PROTEIN 6.8 g/dL (6.4-8.2)
[2020-01-21 08:55] LABS: ABSOLUTE EOSINOPHILS 0.1 thou/uL (0.0-0.7); ABSOLUTE LYMPHOCYTES 1.5 thou/uL (0.8-5.3); ABSOLUTE MONOCYTES 0.4 thou/uL (0.0-1.2); ABSOLUTE NEUTROPHILS 2.2 thou/uL (1.6-8.1); PLATELET ESTIMATE DECREASED
[2020-01-21 08:56] LABS: ANISOCYTOSIS 1+
[2020-01-21 09:27] LABS: APTT 21.9 Seconds (25.0-31.3); INR 1.1; PROTIME 11.7 Seconds (9.20-11.50)
[2020-01-21 13:39] VITALS: BP 172/78
[2020-01-21 15:16] VITALS: BP 172/78
[2020-01-21 16:42] VITALS: BP 158/65
[2020-01-21 21:00] VITALS: BP 172/68
[2020-01-22 00:13] VITALS: BP 166/66
[2020-01-22 02:06] LABS: GLYCOHEMOGLOBIN (HGB A1C) 5.7 % (4.8-5.6)
[2020-01-22 03:59] LABS: HEMATOCRIT 22.8 % (37.0-47.0); MCH 31.9 pg (26.0-34.0); MCHC 33.6 g/dL (28.0-37.0); MCV 94.9 fL (80.0-100.0); RBC 2.4 mil/uL (4.20-5.00); RDW-CV 18.3 % (10.5-14.5)
[2020-01-22 04:00] VITALS: BP 172/68; BP 175/72
[2020-01-22 04:10] LABS: HEMOGLOBIN 7.7 gm/dL (12.0-15.0)
[2020-01-22 04:11] LABS: CALCIUM 8.5 mg/dL (8.5-10.1); CREATININE 0.8 mg/dL (0.6-1.3); MAGNESIUM 1.6 mg/dL (1.8-2.4); POTASSIUM 3.3 mmol/L (3.5-5.1)
[2020-01-22 04:17] LABS: CHOLESTEROL 157 mg/dL (<200); HDL CHOLESTEROL 83 mg/dL (>40); LDL CHOLESTEROL 51 mg/dL (<100); TC:HDL 1.9 Ratio (Not establshd); TRIGLYCERIDE 116 mg/dL (<150); VLDL 23 mg/dL (<40)
[2020-01-22 04:19] LABS: SERUM ASSESSMENT Clear
[2020-01-22 08:11] VITALS: BP 145/66
[2020-01-22 10:42] LABS: MAGNESIUM 2.5 mg/dL (1.8-2.4); POTASSIUM 3.6 mmol/L (3.5-5.1)
[2020-01-22 14:34] VITALS: BP 145/45
[2020-01-22 16:30] VITALS: BP 169/60
--- NOTE | 2020-01-22 16:34 | 2DMMODE ---
[place] [address] 2 D/M-MODE ECHOCARDIOGRAM Name: CHERRY VILLASEÑOR Amisha Room: [address] IN [facility]#: [id number] Admission: 01/21/20 Attend Phys: Yaron Ca, Discharge: Date of : 43 Date of Service: 01/22/20 1633 Report #: [id number] THIS REPORT FOR: cc: Timi Kaye MD, Ravindra R. MD Holkins,Wale Foster MD [facility] ~ APPROVED REPORT Study performed: 01/22/2020 11:23:05 EXAM: Comprehensive 2D, Doppler, and color-flow Echocardiogram Patient Location: In-Patient Room #: [facility] Status: routine BSA: 1.59 HR: 74 bpm BP: 145/66 mmHg Rhythm: NSR Other Information Study Quality: Good Indications CVA/TIA Echo Enhancing Agent Indication: Rule out Shunt Agent(s) / Amount(s) Used: Agitated Saline 10 cc 2D Dimensions IVSd: 11.16 (7-11mm) LVOT Diam: 19.50 (18-24mm) LVDd: 38.37 mm PWd: 8.67 (7-11mm) Ascending Ao: 23.64 (22-36mm) LVDs: 21.95 (25-40mm) Aortic Root: 25.46 mm Volumes Left Atrial Volume (Systole) LA ESV Index: 19.90 mL/m2 Aortic Valve AoV Peak Osvaldo.: 1.22 m/s AO Peak Gr.: 5.98 mmHg LVOT Max P.84 mmHg AO Mean Gr.: 3.64 mmHg LVOT Mean P.05 [place] [address] 2 D/M-MODE ECHOCARDIOGRAM Name: CHERRY VILLASEÑOR Amisha Room: [address] IN [facility].#: [id number] Admission: 01/21/20 Attend Phys: Yaron Ca, Discharge: Date of : 43 Date of Service: 01/22/20 1633 Report #: [id number] LVOT Max V: 0.68 m/s AO V2 VTI: 31.88 cm LVOT Mean V: 0.48 m/s PAL (VTI): 1.49 cm2 LVOT V1 VTI: 15.87 cm Mitral Valve E/A Ratio: 0.88 MV Decel. Time: 269.35 ms MV E Max Osvaldo.: 0.90 m/s MV PHT: 78.11 ms MVA (PHT): 2.82 cm2 TDI E/Lateral E': 12.86 E/Medial E': 12.86 Medial E' Osvaldo.: 0.07 m/s Lateral E' Osvaldo.: 0.07 m/s Pulmonary Valve PV Peak Osvaldo.: 0.76 m/s PV Peak Gr.: 2.30 mmHg Left Ventricle The left ventricle is normal size. There is normal LV segmental wall motion. There is normal left ventricular wall thickness. Left ventricular systolic function is normal. The left ventricular ejection fraction is within the normal range. LVEF is 55-60%. Grade I - abnormal relaxation pattern. Right Ventricle The right ventricle is normal size. The right ventricular systolic function is normal. Atria The left atrium size is normal. The interatrial septum is intact with no evidence for an atrial septal defect. The right atrium size is normal. Aortic Valve Mild aortic valve sclerosis. No aortic regurgitation is present. Mild aortic stenosis. Mitral Valve There is mitral annular calcification. Trace mitral regurgitation. No evidence of mitral valve stenosis. Tricuspid Valve The tricuspid valve is normal in structure. Unable to assess PA pressure. Trace tricuspid [place] [address] 2 D/M-MODE ECHOCARDIOGRAM Name: CHERRY VILLASEÑOR Room: [address] IN [facility]#: [id number] Admission: 01/21/20 Attend Phys: Yaron Ca, Discharge: Date of : 43 Date of Service: 01/22/20 1633 Report #: [id number] Pulmonic Valve The pulmonary valve is normal in structure. There is no pulmonic valvular regurgitation. Great Vessels The aortic root is normal in size. IVC is normal in size and collapses >50% with inspiration. Pericardium There is no pericardial effusion. <Conclusion> The left ventricle is normal size. There is normal left ventricular wall thickness. Left ventricular systolic function is normal. The left ventricular ejection fraction is within the normal range. LVEF is 55-60%. Grade I - abnormal relaxation pattern. The right ventricle is normal size. The left atrium size is normal. Mild aortic valve sclerosis. No aortic regurgitation is present. Mild aortic stenosis. There is mitral annular calcification. Trace mitral regurgitation. No evidence of mitral valve stenosis. The tricuspid valve is normal in structure. IVC is normal in size and collapses >50% with inspiration. There is normal LV segmental wall motion. The interatrial septum is intact with no evidence for an atrial septal defect. <ELECTRONICALLY SIGNED> By: Wale Mart MD, FACC 01/22/20 1633 1633 1633 Wale Mart MD, FACC /INF
--- NOTE | 2020-01-22 17:39 | EKG ---
[place] [address] ELECTROCARDIOGRAM REPORT Name: CHERRY VILLASEÑOR Room: [address] ADM IN M.R.#: [id number] Admission: 01/21/20 Attend Phys: Yaron Ca, Discharge: Date of : 43 Date of Service: 01/21/20 0821 Report #: [id number] THIS REPORT FOR: //name// [facility] ED Test Date: 2020-01-21 Test Time: 08:21:43 Pat Name: CHERRY VILLASEÑOR Department: Room: [facility] Gender: F Medical Records Coordinator: DSMally : 1945 Requested By: Oscar Lala Order Number: [id number] MD: Fede Castle Measurements Intervals [place] Rate: 106 P: 86 [place]: 154 QRS: 53 QRSD: 84 T: 65 QT: 335 QTc: 445 Interpretive Statements Sinus tachycardia Abnormal R-wave progression, early transition Compared to ECG 12/24/2019 17:08:20 Sinus rhythm no longer present Ventricular premature complex(es) no longer present Electronically Signed On 01-22-2020 17:38:55 CDT by Fede Castle [email or web address] <ELECTRONICALLY SIGNED> By: Fede Castle MD, FACC 01/22/20 1738 0 0 Fede Castle MD, FACC /EPI
[2020-01-22 19:50] VITALS: BP 142/48
[2020-01-23] VITALS: BP 156/45
[2020-01-23 04:00] VITALS: BP 154/50
[2020-01-23 05:16] LABS: ABSOLUTE EOSINOPHILS 0.1 thou/uL (0.0-0.7); ABSOLUTE MONOCYTES 0.3 thou/uL (0.0-1.2); ABSOLUTE NEUTROPHILS 1.8 thou/uL (1.6-8.1); BASOPHILS 1.1 %; EOSINOPHILS 1.9 %; HEMATOCRIT 27.2 % (37.0-47.0); HEMOGLOBIN 9.3 gm/dL (12.0-15.0); LYMPHOCYTES 30.9 %; MCH 32.1 pg (26.0-34.0); MCHC 34.1 g/dL (28.0-37.0); MCV 94.2 fL (80.0-100.0); MONOCYTES 10.8 %; MPV 8.2 fl. (7.2-11.1); NUCLEATED RBCS 0 /100WBC; PLATELET COUNT* 79 thou/uL (150-400); POLYS 55.3 %; RBC 2.89 mil/uL (4.20-5.00); RDW-CV 17.9 % (10.5-14.5); WBC 3.2 thou/uL (4.0-11.0)
[2020-01-23 05:24] LABS: CALCIUM 7.8 mg/dL (8.5-10.1); CREATININE 0.7 mg/dL (0.6-1.3); POTASSIUM 3.1 mmol/L (3.5-5.1)
[2020-01-23 08:00] VITALS: BP 173/61
[2020-01-23] MEDS ORDERED: ASA81BEC PO (12:34)
[2020-01-23] MEDS ORDERED: XANAX 0.25 MG0.25 MG PO (12:34)
[2020-01-23] MEDS ORDERED: MAGNESIUM250 M1 PO (12:37)
[2020-01-23] MEDS ORDERED: POTASSIUM20 PO (12:37)
[2020-01-23 14:33] VITALS: BP 125/56
[2020-01-23 15:49] VITALS: BP 125/56
[2020-01-23 17:45] VITALS: BP 133/58
--- NOTE | 2020-01-25 15:40 | IN ---
[facility] [address] [place] [address] INTERIM NOTE Name: CHERRY VILLASEÑOR Amisha Room: [address] IN M.R.#: [id number] Admission: 01/21/20 Attend Phys: Yaron Ca MD Discharge: 01/23/20 Date of : 43 Report #: [id number] THIS REPORT FOR: //name// cc: Timi Kaye MD, Ravindra R. MD ~ CC: Yaron Kaye DATE OF SERVICE: 01/23/2020 SUBJECTIVE: She is feeling better. She is being discharged home. She has some weakness, but overall feels better. OBJECTIVE: VITAL SIGNS: Blood pressure 125/56, heart rate is 83, temperature 98.2. HEENT: Neck is supple. Anicteric sclerae. There is no lymphadenopathy. ABDOMEN: Soft. EXTREMITIES: Lower extremities, no edema. MENTAL STATUS: Alert and oriented x 2. LABORATORY DATA: White count 3.2, hemoglobin 9.3, platelets 79. Potassium 3.1. ASSESSMENT AND PLAN: 1. Pancytopenia, secondary to chemotherapy. Continue to monitor. 2. Hypokalemia, has been replaced per primary care team. 3. Small cell lung cancer. The patient is advised to see Dr. Kaye, primary oncologist, after she is released from the hospital and continue to follow up with Dr. Kaye for further chemotherapy for lung cancer. <ELECTRONICALLY SIGNED> By: Jacky Blair MD 01/25/20 1540 2254 [id number] Blair MD /nt
--- NOTE | 2020-02-01 18:46 | CON ---
[address] [address] CONSULTATION Name: DIANA VILLASEÑORSA Lion Room: [address] IN M.R.#: [id number] Admission: 01/21/20 Attend Phys: Yaron Ca MD Discharge: 01/23/20 Date of : 43 Report #: [id number] THIS REPORT FOR: //name// cc: Timi Kaye MD, Ravindra R. MD ~ THIS REPORT FOR: //name// CC: Yaron Kaye DATE OF SERVICE: 01/22/2020 HISTORY OF PRESENT ILLNESS: This is a 74-year-old female patient who was seen by me in episode she said she went to the bathroom and then she realized that she could not make sense out of the clock then she had some double vision and then she passed out. She was confused for some time, but then she returned back to her baseline. She had an episode about 10 years ago. That was diagnosed as TIA. She had some workup done. Workup was unremarkable except she had some carotid problems. She still sees a neurologist. She does not know the name of the neurologist. They do carotid Doppler periodically, which apparently has shown some stenosis. REVIEW OF SYSTEMS: Positive for multiple things. She said she has multiple problems. She says she had low sodium in the past. She has a longstanding COPD. She does get some hyperglycemia as I understand, she has a history of bronchitis and TIA. This was her relevant 14-point review of system. PAST MEDICAL HISTORY: Positive for SIADH. FAMILY HISTORY: Unremarkable. SOCIAL HISTORY: She says she used to smoke, but stopped smoking long time ago, but she does not drink any alcohol. PHYSICAL EXAMINATION: NEUROLOGIC: Indicate that she is alert. She is responsive. She can tell me what month it is, what day it is, who the president is. Her speech looks intact. Apparently, speech was intact even when this spell happened. Cranial nerve examination 2-12 looks unremarkable. Strength looks symmetrical. Position sense is intact. Reflexes are elicitable. Plantars are either withdrawal or upgoing, I cannot tell. She does not have any cerebellar sign. I could not look at the patient's fundus. She is alert, responsive, able to follow simple and complex command and her pulses are nicely palpable. EXTREMITIES: She has no edema, cyanosis or jaundice. HEENT: Her vision [place] [address] CONSULTATION Name: CHERRY VILLASEÑOR Room: [address]#: [id number] Admission: 01/21/20 Attend Phys: Yaron Ca MD Discharge: 01/23/20 Date of : 43 Report #: [id number] CARDIOVASCULAR: Cardiac examination is unremarkable. RESPIRATORY: She does have some shortness of breath. LABORATORY DATA: Her GFR was 70 and it has been staying reasonably good, except one time in 2017 it was 49. IMPRESSION: I think this patient needs further workup. Either we can do MRI of the brain with and without contrast. She has trouble lying still because of chronic obstructive pulmonary disease and lying flat. If that is a problem, we can do a CT angio of the head and neck, but she needs one of the tests before she goes home, but she is adamant she is going home. She wants to talk to the admitting doctor and I will also talk to them and see if we can talk into doing at least one of the testing. Thank you very much for this referral and I will follow the patient along with you. <ELECTRONICALLY SIGNED> By: Ubaldo Veliz MD 02/01/20 1846 0931 0949Ubaldo Veliz MD /nt
== END 2020-01-23 16:35 | disposition home or self-care (01) | DRG 67 ==
LOC: M.ERS 06:50 → M.TBA-ER 09:03 → M.2W 09:03
PROVIDERS: Family Medicine; Internal Medicine; ADMIT Internal Medicine; ATTEND Internal Medicine
DX: I65.22 Occlusion and stenosis of left carotid artery (principal); D61.810 Antineoplastic chemotherapy induced pancytopenia; C78.7 Secondary malignant neoplasm of liver and intrahepatic bile duct; C34.90 Malignant neoplasm of unspecified part of unspecified bronchus or lung; E22.2 Syndrome of inappropriate secretion of antidiuretic hormone; Q61.3 Polycystic kidney, unspecified; E87.6 Hypokalemia; T45.1X5A Adverse effect of antineoplastic and immunosuppressive drugs, initial encounter; D64.9 Anemia, unspecified; D69.6 Thrombocytopenia, unspecified; R73.03 Prediabetes; R73.9 Hyperglycemia, unspecified; Z20.828 Contact with and (suspected) exposure to other viral communicable diseases; J44.9 Chronic obstructive pulmonary disease, unspecified; I10 Essential (primary) hypertension; E03.9 Hypothyroidism, unspecified; Z79.899 Other long term (current) drug therapy; Y92.89 Other specified places as the place of occurrence of the external cause